=== PATIENT | male | born 1995 ===

== ENCOUNTER 2020-04-09 14:55 | Inpatient (IN) | payer SELFPAY ==
[2020-04-09] MEDS ORDERED: SODIUM CHLORIDE 0.9% 1000 ML 1,000 ML IV ONE (15:11)
--- NOTE | 2020-04-09 15:12 | Event Note ---
ED Screening Note Date of service: 04/09/20 Time: 15:10 ED Screening Note: This initial assessment/diagnostic orders/clinical plan/treatment(s) is/are subject to change based on patients health status, clinical progression and re- assessment by fellow clinical providers in the ED. Further treatment and workup at subsequent clinical providers discretion. Patient/guardian urged not to elope from the ED as their condition may be serious if not clinically assessed and managed. Initial orders include: 24-year-old male presents to the emergency room reporting 3 days of nausea vomiting and diarrhea. He states he is unable to keep any food down the last attempt to eat a banana this morning but also vomiting he denies fever chills
[2020-04-09] MEDS ORDERED: ONDANSETRON 4 MG/2 ML INJ IM ONE (15:13)
[2020-04-09 15:32] LABS: Basophils # (Auto) 0.1 K/mm3 (0.0-0.1); Basophils % (Auto) 0.3 % (0.0-1.8); Eosinophils % (Auto) 0.1 % (0.0-4.3); Hematocrit 44.8 % (35.5-45.6); Hemoglobin 15.3 gm/dl (11.8-15.2); Lymphocytes # (Auto) 1.4 K/mm3 (1.2-5.4); Lymphocytes % (Auto) 8.6 % (13.4-35.0); Mean Corpuscular HGB Conc 34 % (32-34); Mean Corpuscular Volume 75 fl (84-94); Monocytes # (Auto) 1.5 K/mm3 (0.0-0.8); Monocytes % (Auto) 9.2 % (0.0-7.3); Platelet Count 477 K/mm3 (140-440); Red Blood Count 5.96 M/mm3 (3.65-5.03); Red Cell Distribution Width 13.7 % (13.2-15.2)
[2020-04-09 15:49] LABS: Alanine Aminotransferase 17 units/L (7-56); Albumin 4.2 g/dL (3.9-5); BUN/Creatinine Ratio 11; Blood Urea Nitrogen 9 mg/dL (9-20); Calcium 9.9 mg/dL (8.4-10.2); Hemolysis Index 3
[2020-04-09] MEDS ORDERED: ONDANSETRON 4 MG/2 ML INJ IV ONE ×2 (16:14→18:50)
--- NOTE | 2020-04-09 16:34 | Emergency Department Report ---
HPI - General Chief Complaint: Nausea/Vomiting/Diarrhea Time Seen by Provider: 04/09/20 16:14 - HPI HPI: This is a 24-year-old male who presents to the emergency department with a 4 to 5-day history of nausea with vomiting, and some intermittent abdominal pains. The patient says that he has multiple episodes of vomiting per day and it is gone to the point where he thinks he is vomiting up yellowish-green fluid or bile. When the patient tries to eat or drink anything it increases the pressure in the upper abdomen/epigastrium and the patient says "if I do not burp then I vomit." The patient complains of some mild abdominal pain that seems to occur in different locations. It is a cramping pain, 2 out of 10 but worsens with palpation of the abdomen. The patient was admitted here in July of last year with a ruptured tip appendicitis that caused pelvic and presacral abscesses. The patient had IR drainage and drain placement but did not have an appendectomy at that time. The patient has not taken anything for his symptoms prior to presentation. No recent travel or sick contacts at home. No known exposure to anyone with COVID-19. ED Past Medical Hx - Past Medical History Hx Congestive Heart Failure: No Hx Diabetes: No Hx Asthma: No Hx HIV: No - Surgical History Hx Appendectomy: Yes - Social History Smoking Status: Never Smoker Substance Use Type: None - Medications Home Medications: Home Medications Medication Instructions Recorded Confirmed Last Taken Type No Known Home Medications [No 04/09/20 04/09/20 Unknown History Reported Home Medications] ED Review of Systems ROS: Stated complaint: NAUSEA/VOMITING Other details as noted in HPI Comment: All other systems reviewed and negative Constitutional: denies: chills, fever Eyes: denies: eye pain, vision change ENT: denies: ear pain, throat pain Respiratory: denies: cough, shortness of breath Cardiovascular: denies: chest pain, palpitations Gastrointestinal: abdominal pain, nausea, vomiting Genitourinary: denies: dysuria, discharge Musculoskeletal: denies: back pain, arthralgia Skin: denies: rash, lesions Neurological: denies: headache, weakness Physical Exam - Physical Exam Vital Signs: Vital Signs 04/09/20 04/09/20 14:57 16:26 Temperature 98.2 F Pulse Rate 104 H Respiratory 18 18 Rate Blood Pressure 142/90 O2 Sat by Pulse 98 Oximetry Physical Exam: GENERAL: The patient is well-developed well-nourished. HENT: Normocephalic. Atraumatic. Patient has moist mucous membranes. EYES: Extraocular motions are intact. NECK: Supple. Trachea is midline. CHEST/LUNGS: Clear to auscultation. There is no respiratory distress noted. HEART/CARDIOVASCULAR: Regular. There is no tachycardia. There is no murmur. ABDOMEN: Abdomen is soft. Very mild lower abdominal tenderness to palpation. No guarding. No peritoneal signs. Patient has normal bowel sounds. There is no abdominal distention. SKIN: Skin is warm and dry. NEURO: The patient is awake, alert, and oriented. The patient is cooperative. The patient has no focal neurologic deficits. Normal speech. MUSCULOSKELETAL: There is no tenderness or deformity. There is no limitation range of motion. ED Course Vital Signs 04/09/20 04/09/20 14:57 16:26 Temperature 98.2 F Pulse Rate 104 H Respiratory 18 18 Rate Blood Pressure 142/90 O2 Sat by Pulse 98 Oximetry - Consultations Consultation #1: 04/09/20 18:51 I spoke to the general surgeon on-call, Dr. Monae, regarding the patient's CT findings of a large pelvic abscess. He is requested the patient receive broad- spectrum antibiotics. He will see the patient as a consult. He says that most likely the patient will need to be seen by IR for an attempt at drainage and/or drain placement. Consultation #2: 04/09/20 19:[address] Bonilla, vascular surgeon/IR, who has graciously agreed to see the patient as a consult. He says that he may not be able to do any type of CT guided procedure until Saturday as we do not have those capabilities over the weekend. ED Medical Decision Making - Lab Data Result diagrams: 04/09/20 15:19 04/09/20 15:19 - Radiology Data Radiology results: report reviewed CT ABDOMEN AND PELVIS WITH CONTRAST INDICATION / CLINICAL INFORMATION: Abd pain, hx of appendicitis without appendectomy. TECHNIQUE: Axial CT images were obtained through the abdomen and pelvis after IV contrast. All CT scans at this location are performed using CT dose reduction for ALARA by means of automated exposure control. COMPARISON: 08/31/2019. FINDINGS: LOWER CHEST: No significant abnormality. LIVER: No significant abnormality. GALLBLADDER: No significant abnormality. BILE DUCTS: No significant abnormality. PANCREAS: No significant abnormality. SPLEEN: No significant abnormality. ADRENALS: No significant abnormality. RIGHT KIDNEY / URETER: No significant abnormality. LEFT KIDNEY / URETER: No significant abnormality. STOMACH / SMALL BOWEL: Local inflammatory changes are noted of the small bowel within the lower abdomen. Additionally there is gas and fluid-filled distention of small bowel loops, the largest measuring 3.1 cm in cross sectional diameter. COLON: Inflammatory changes are noted of the colon and the right lower quadrant of the abdomen and central pelvis. APPENDIX: Significant inflammatory changes and fluid collection are noted in the pelvis causing incomplete visualization of the appendix. PERITONEUM: Interval removal of previously noted percutaneous drain of the pelvis with worsened pelvic abscess above the dome of the bladder, the largest collection measures 7.4 x 5.9 cm and extends along the left margin of the urinary bladder. No free air. LYMPH NODES: Reactive appearing lymph nodes are noted at the root of the mesentery. AORTA / ARTERIES: No significant abnormality. IVC / VEINS: No significant abnormality. URINARY BLADDER: No significant abnormality. REPRODUCTIVE ORGANS: No significant abnormality. ADDITIONAL FINDINGS: None. SKELETAL SYSTEM: Sacralization is noted of L5. No aggressive osseous lesions. IMPRESSION: 1. Worsened inflammatory process in the pelvis with large pelvic abscess measuring 7.4 x 5.9 cm. The previously noted percutaneous drain has been removed. The appendix is not well-visualized secondary to the extensive inflammatory changes in the pelvis and may have ruptured. Consultation with surgery is recommended. 2. Focal ileus is noted of small bowel loops in the pelvis likely secondary to local inflammatory changes. No definitive mechanical bowel obstruction is noted. 3. Worsened reactive lymphadenopathy at the root of the mesentery and retroperitoneum. - Medical Decision Making This patient presents to the emergency department with a complaint of nausea and vomiting but on examination he has very mild lower abdominal tenderness to palpa tion. The patient has a complex history from last summer that showed some type of appendiceal rupture causing an extensive pelvic abscess. The patient had IR drainage followed by another procedure to place drains. The patient never had an appendectomy. Given this history, the mild lower abdominal tenderness to palpation, and the 16,000 white blood cell count found on his laboratory studies, I ordered a CT scan of the abdomen and pelvis with IV contrast. The CT resulted as showing a large left-sided pelvic abscess without CT evidence of the appendix. General surgery was contacted and consulted. Vascular surgery/IR was also contacted and consulted. The patient was given broad-spectrum antibiotics and will be admitted to the hospitalist service. The patient was accepted for admission by Dr. Garcia. Critical Care Time: Yes Critical care time in (mins) excluding proc time.: 35 Critical care attestation.: If time is entered above; I have spent that time in minutes in the direct care of this critically ill patient, excluding procedure time. Critical care time was spent on this patient in doing his initial evaluation, multiple reevaluations, ordering interpretation of labs and imaging, discussion with the general surgery and IR services, multiple discussions with the patient. Critical Care Time: 35 minutes ED Disposition Clinical Impression: Pelvic abscess in male, Appendicitis with abscess, Ileus Disposition: OP ADMIT IP TO THIS HOSP Is pt being admited?: Yes Condition: Serious Time of Disposition: 22:19
--- NOTE | 2020-04-09 18:34 | Cat Scan Report ---
CT ABDOMEN AND PELVIS WITH CONTRAST INDICATION / CLINICAL INFORMATION: Abd pain, hx of appendicitis without appendectomy. TECHNIQUE: Axial CT images were obtained through the abdomen and pelvis after IV contrast. All CT scans at this location are performed using CT dose reduction for ALARA by means of automated exposure control. COMPARISON: 08/31/2019. FINDINGS: LOWER CHEST: No significant abnormality. LIVER: No significant abnormality. GALLBLADDER: No significant abnormality. BILE DUCTS: No significant abnormality. PANCREAS: No significant abnormality. SPLEEN: No significant abnormality. ADRENALS: No significant abnormality. RIGHT KIDNEY / URETER: No significant abnormality. LEFT KIDNEY / URETER: No significant abnormality. STOMACH / SMALL BOWEL: Local inflammatory changes are noted of the small bowel within the lower abdom en. Additionally there is gas and fluid-filled distention of small bowel loops, the largest measuring 3.1 cm in cross sectional diameter. COLON: Inflammatory changes are noted of the colon and the right lower quadrant of the abdomen and ce ntral pelvis. APPENDIX: Significant inflammatory changes and fluid collection are noted in the pelvis causing incom plete visualization of the appendix. PERITONEUM: Interval removal of previously noted percutaneous drain of the pelvis with worsened pelvi c abscess above the dome of the bladder, the largest collection measures 7.4 x 5.9 cm and extends rusty ng the left margin of the urinary bladder. No free air. LYMPH NODES: Reactive appearing lymph nodes are noted at the root of the mesentery. AORTA / ARTERIES: No significant abnormality. IVC / VEINS: No significant abnormality. URINARY BLADDER: No significant abnormality. REPRODUCTIVE ORGANS: No significant abnormality. ADDITIONAL FINDINGS: None. SKELETAL SYSTEM: Sacralization is noted of L5. No aggressive osseous lesions. IMPRESSION: 1. Worsened inflammatory process in the pelvis with large pelvic abscess measuring 7.4 x 5.9 cm. The previously noted percutaneous drain has been removed. The appendix is not well-visualized secondary t o the extensive inflammatory changes in the pelvis and may have ruptured. Consultation with surgery i s recommended. 2. Focal ileus is noted of small bowel loops in the pelvis likely secondary to local inflammatory shukri nges. No definitive mechanical bowel obstruction is noted. 3. Worsened reactive lymphadenopathy at the root of the mesentery and retroperitoneum. Signer Name: Elan Berg MD Signed: 04/09/2020 6:29 PM Workstation Name: [id number]
[2020-04-09] MEDS ORDERED: PIPERACIL/TAZOBACTA 4.5/NS 100 4.5 GM/100 ML VIAL IV ONE (18:39)
[2020-04-09] MEDS ORDERED: ONDANSETRON 4 MG/2 ML INJ ONE (18:48)
--- NOTE | 2020-04-09 18:51 | History and Physical Report ---
History of Present Illness Chief complaint: My stomach hurts History of present illness: 24 YO Male with Nicotine Dependence presents to ED for evaluation. Patient reports "my stomach hurts". Patient states that he has experienced abdominal pain, nausea, multiple episodes of vomiting over the past 4 days with progre ssively worsening symptoms over the past 1 day. Patient states that pain is 4/10, intermittent, crampy in nature, worsens with palpation. EMS was notified and upon evaluation the patient was found to be in distress and subsequently transported to [facility] for further care and evaluation of the aforementioned symptoms. The patient was seen and evaluated in the emergency department. All lab and imaging studies reviewed. The patient underwent a CT scan of the abdomen and pelvis which revealed a 7.5 cm x 6 cm pelvic abscess complicated by sepsis. Patient initiated on sepsis protocol and admitted to surgical floor. Surgical team consulted in ED. Interventional radiology team consulted in ED. Patient denies fever, chills, chest pain, palpitations, productive cough, skin rash, recent ill contacts, or known exposure to COVID-19. Prior admission on 08/23/2019 reviewed. All medication listed at time of admission has been reconciled. Past History Past Medical History: other (See HPI) Past Surgical History: appendectomy Social history: single, smoking Family history: no significant family history, other (Reviewed) Medications and Allergies Allergies Allergy/AdvReac Type Severity Reaction Status Date / Time No Known Allergies Allergy Verified 04/09/20 14:56 Home Medications Medication Instructions Recorded Confirmed Last Taken Type No Known Home Medications [No 04/09/20 04/09/20 Unknown History Reported Home Medications] Active Meds: Active Medications Piperacillin Sod/Tazobactam Sod (Zosyn/Ns 4.5gm/100ml) 4.5 gm in 100 mls @ 200 mls/hr IV ONCE ONE; Protocol Stop: 04/09/20 19:08 Metronidazole (Flagyl 500 Mg/100 Ml) 500 mg in 100 mls @ 100 mls/hr IV Q8H [facility]; Protocol Ondansetron HCl (Ondansetron 4 Mg/2 Ml Inj) 4 mg IV ONCE ONE Stop: 04/09/20 18:51 Review of Systems Constitutional: no weight loss, no weight gain, no fever, no chills Ears, nose, mouth and throat: no ear pain, no ear discharge, no decreased hearing, no nose pain, no nasal congestion Cardiovascular: no chest pain, no orthopnea, no rapid/irregular heart beat, no edema, no syncope Respiratory: no cough, no excessive sputum, no shortness of breath, no dyspnea on exertion Gastrointestinal: abdominal pain, nausea, vomiting, no diarrhea, no change in bowel habits, no BRBPR, no melena, no hematochezia, no loss of appetite Genitourinary Male: no hematuria, no flank pain, no discharge, no urinary frequ ency, no urinary hesitancy Rectal: no pain, no incontinence, no bleeding Musculoskeletal: no neck stiffness, no shooting arm pain, no arm numbness/tin gling, no low back pain, no leg numbness/tingling Integumentary: no rash, no pruritis, no redness, no sores, no boils Neurological: no transient paralysis, no weakness, no numbness, no seizures Psychiatric: no anxiety, no change in sleep habits, no insomnia, no hypersomnia, no change in appetite, no change in libido Endocrine: no cold intolerance, no polyphagia, no excessive thirst, no polyuria, no excessive sweating Hematologic/Lymphatic: no easy bruising, no lymphadenopathy Allergic/Immunologic: no urticaria, no persistent infections, no angioedema Exam - Constitutional Vitals: Temp Pulse Resp BP Pulse Ox 98.2 F 83 18 108/70 98 04/09/20 14:57 04/09/20 16:32 04/09/20 16:32 04/09/20 16:32 04/09/20 16:32 General appearance: Present: mild distress - EENT Eyes: Present: PERRL ENT: hearing intact, clear oral mucosa - Neck Neck: Present: supple, normal ROM - Respiratory Respiratory effort: normal Respiratory: bilateral: CTA - Cardiovascular Heart Sounds: Present: S1 & S2. Absent: rub, click - Extremities Extremities: pulses symmetrical, No edema Peripheral Pulses: abnormal (Capillary refill greater than 3.5 seconds) - Abdominal General gastrointestinal: Present: soft, tender, non-distended, normal bowel aminata nds Localized gastrointestinal: tender: epigastric periumbilical Male genitourinary: Present: normal - Integumentary Integumentary: Present: clear, warm, dry - Musculoskeletal Musculoskeletal: gait normal, strength equal bilaterally - Psychiatric Psychiatric: appropriate mood/affect, intact judgment & insight - Neurologic Neurologic: CNII-XII intact, moves all extremities Results - Labs CBC & Chem 7: 04/09/20 15:19 04/09/20 15:19 Labs: Abnormal lab results 04/09/20 04/09/20 Range/Units 15:19 15:19 WBC 16.4 H (4.5-11.0) K/mm3 RBC 5.96 H (3.65-5.03) M/mm3 Hgb 15.3 H (11.8-15.2) gm/dl MCV 75 L (84-94) fl MCH 26 L (28-32) pg Plt Count 477 H (140-440) K/mm3 Lymph % (Auto) 8.6 L (13.4-35.0) % [place] % (Auto) 9.2 H (0.0-7.3) % [place] # (Auto) 1.5 H (0.0-0.8) K/mm3 Seg Neutrophils % 81.8 H (40.0-70.0) % Seg Neutrophils # 13.4 H (1.8-7.7) K/mm3 Sodium 132 L (137-145) mmol/L Chloride 95.1 L (98-107) mmol/L Carbon Dioxide 21 L (22-30) mmol/L Glucose 101 H (75-100) mg/dL Total Protein 9.1 H (6.3-8.2) g/dL Assessment and Plan - Patient Problems (1) Sepsis Current Visit: Yes Status: Acute Plan to address problem: Sepsis protocol: CBC, CMP, urinalysis, CT scan abdomen and pelvis, IV antibiotic therapy, IV fluid resuscitation therapy, serial lactic acid level, blood culture, maintain mean arterial pressure greater than or equal to 65. (2) Intra-abdominal abscess Current Visit: Yes Status: Acute Plan to address problem: CT scan abdomen pelvis, interventional radiology team consulted, surgical team consulted, IV antibiotic therapy, bowel rest, n.p.o. after midnight. Surgical intervention as per surgical team. (3) Nicotine dependence Current Visit: Yes Status: Acute Qualifiers: Nicotine product type: cigarettes Substance use status: in withdrawal Qualified Code(s): F17.213 - Nicotine dependence, cigarettes, with withdrawal Plan to address problem: Smoking cessation counseling, supportive care, behavior change counseling, +15 minutes. (4) DVT prophylaxis Current Visit: Yes Status: Acute Plan to address problem: SCD to bilateral lower extremities while in bed, patient is ambulatory.
[2020-04-09] MEDS ORDERED: ACETAMINOPHEN 325 MG TAB PO PRN ×2 (18:54)
[2020-04-09] MEDS ORDERED: ALBUTEROL 2.5 MG/3 ML NEBU IH PRN (18:54)
[2020-04-09] MEDS ORDERED: SODIUM CHLORIDE 0.9% 1000 ML IV SOLN IV ONE (18:54)
[2020-04-09] MEDS ORDERED: oxyCODONE /ACETAMINOPHEN 5-325MG TAB PO PRN (18:54)
[2020-04-09] MEDS ORDERED: HYDROmorphone 1 MG/1 ML INJ IV PRN (18:54)
[2020-04-09] MEDS ORDERED: metroNIDAZOLE/NS 500 MG/100 ML 500 MG/100 ML BAG IV SCH (19:00)
[2020-04-09] MEDS ORDERED: CEFEPIME/NS 2 GM/100 ML 2 GM/100 ML BAG IV SCH (20:00)
--- NOTE | 2020-04-09 20:57 | Event Note ---
Date: 04/09/20 Contacted about a 24 year old male with recurrent appendiceal abscess. No interval appendectomy performed. \ Unclear if the original appendiceal abscess ever resolved based on imaging as there is no CT demonstrating resolution of the fluid collection. Patient will need drainage of collection. Plan for drainage on saturday given lack of resources to perform CT guided procedures on the weekend (ie no nurse or tech available). Will need to be NPO except sips of water for saturday. Saturday PO status based on surgery decision.
[2020-04-09] MEDS: SODIUM CHLORIDE 0.9% 1000 ML 1,000 ML IV SCH (23:50)
[2020-04-10 03:59] LABS: Basophils # (Auto) 0.1 K/mm3 (0.0-0.1); Basophils % (Auto) 0.9 % (0.0-1.8); Eosinophils % (Auto) 0.2 % (0.0-4.3); Hematocrit 33.9 % (35.5-45.6); Lymphocytes # (Auto) 1.1 K/mm3 (1.2-5.4); Lymphocytes % (Auto) 6.3 % (13.4-35.0); Mean Corpuscular HGB Conc 36 % (32-34); Mean Corpuscular Volume 75 fl (84-94); Monocytes % (Auto) 11.8 % (0.0-7.3); Platelet Count 387 K/mm3 (140-440); Red Blood Count 4.54 M/mm3 (3.65-5.03); Red Cell Distribution Width 13.9 % (13.2-15.2)
[2020-04-10 04:12] LABS: BUN/Creatinine Ratio 10; Blood Urea Nitrogen 8 mg/dL (9-20); Calcium 8.4 mg/dL (8.4-10.2); Hemolysis Index 0
[2020-04-10] MEDS: ONDANSETRON 4 MG/2 ML INJ IV PRN (04:49)
[2020-04-10] MEDS: metroNIDAZOLE/NS 500 MG/100 ML 500 MG/100 ML BAG IV SCH ×2 (04:49→13:24)
[2020-04-10] MEDS: CEFEPIME/NS 2 GM/100 ML 2 GM/100 ML BAG IV SCH ×2 (08:55→15:38)
[2020-04-10] MEDS: SODIUM CHLORIDE 0.9% 1000 ML 1,000 ML IV SCH (09:41)
--- NOTE | 2020-04-10 12:29 | Progress Note ---
Assessment and Plan -- Sepsis Due to intra-abdominal abscess Continue sepsis protocol with IV antibiotics, Monitor CBC BMP, follow culture -- Intra-abdominal abscess Patient had history of appendicular abscess last year on August -status post drainage that time. Patient was recommended to follow-up with Dr. Fraser which he did and patient never had elective appendectomy done as patient appeared to be clinically stable during his outpatient follow-up Patient now came back with big intra-abdominal abscess which is Noted in the CT scan abdomen pelvis, interventional radiology team consulted, surgical team consulted, Continue IV antibiotic therapy, planned for IR guided drainage catheter placement --History of appendicular abscess, status post drainage by IR back on 08/2019, and Patient did not have elective appendectomy as outpatient following discharge General surgery now consulted and recommended for elective appendectomy once intra-abdominal abscess resolved or IR guided drainage fails -- Nicotine dependence Smoking cessation counseling, supportive care, behavior change counseling, +15 minutes. -- DVT prophylaxis SCD to bilateral lower extremities while in bed, patient is ambulatory. Daily course: 04/10: Cont iv abx, planned for CT guided drainage tomorrow in the am. Patient refusing to take cefepime as he developed nausea and vomiting after infusion of cefepime. Stop cefepime and continue Zosyn for now. Subjective Date of service: 04/10/20 Interval history: Patient seen inside the room with the RN No acute event overnight Refused IV antibiotics as he developed n/v planned for IR guided drainage tomorrow Objective - Exam Narrative Exam: Limited physical exam due to COVID-19 pandemic to minimize transmission of the disease and to preserve PPE. Vital reviewed and stable. GENERAL: well-developed well-nourished young male lying on bed appeared to be in no discomfort. HEENT: Normocephalic. Atraumatic. NECK: Supple. CHEST/LUNGS: breathing nonlabored. HEART/CARDIOVASCULAR: Heart rate stable on telemetry ABDOMEN: Visibly not distended. SKIN: There is no rash NEURO: No focal motor deficit. Follows command. MUSCULOSKELETAL: No joint effusion EXTRIMITY: No swelling, no cyanosis or clubbing. PSYCH: cooperative. - Constitutional Vitals: Vital Signs - 12hr 04/10/20 04/10/20 04/10/20 05:22 09:55 11:38 Temperature 97.6 F Pulse Rate 86 87 Respiratory 16 16 Rate Blood Pressure 121/80 110/64 O2 Sat by Pulse 98 98 99 Oximetry - Labs CBC & Chem 7: 04/12/20 14:03 04/13/20 09:40 Labs: Abnormal lab results 04/09/20 04/09/20 04/09/20 Range/Units 15:19 15:19 18:45 WBC 16.4 H (4.5-11.0) K/mm3 RBC 5.96 H (3.65-5.03) M/mm3 Hgb 15.3 H (11.8-15.2) gm/dl Hct (35.5-45.6) % MCV 75 L (84-94) fl MCH 26 L (28-32) pg MCHC (32-34) % Plt Count 477 H (140-440) K/mm3 Lymph % (Auto) 8.6 L (13.4-35.0) % [place] % (Auto) 9.2 H (0.0-7.3) % Lymph # (Auto) (1.2-5.4) K/mm3 [place] # (Auto) 1.5 H (0.0-0.8) K/mm3 Seg Neutrophils % 81.8 H (40.0-70.0) % Seg Neutrophils # 13.4 H (1.8-7.7) K/mm3 Sodium 132 L (137-145) mmol/L Chloride 95.1 L (98-107) mmol/L Carbon Dioxide 21 L (22-30) mmol/L BUN (9-20) mg/dL Glucose 101 H (75-100) mg/dL Lactic Acid 0.60 L (0.7-2.0) mmol/L Total Protein 9.1 H (6.3-8.2) g/dL 04/10/20 04/10/20 Range/Units 03:52 03:52 WBC 16.7 H (4.5-11.0) K/mm3 RBC (3.65-5.03) M/mm3 Hgb (11.8-15.2) gm/dl Hct 33.9 L D (35.5-45.6) % MCV 75 L (84-94) fl MCH 27 L (28-32) pg MCHC 36 H (32-34) % Plt Count (140-440) K/mm3 Lymph % (Auto) 6.3 L (13.4-35.0) % [place] % (Auto) 11.8 H (0.0-7.3) % Lymph # (Auto) 1.1 L (1.2-5.4) K/mm3 [place] # (Auto) 2.0 H (0.0-0.8) K/mm3 Seg Neutrophils % 80.8 H (40.0-70.0) % Seg Neutrophils # 13.5 H (1.8-7.7) K/mm3 Sodium 134 L (137-145) mmol/L Chloride (98-107) mmol/L Carbon Dioxide 20 L (22-30) mmol/L BUN 8 L (9-20) mg/dL Glucose 74 L (75-100) mg/dL Lactic Acid (0.7-2.0) mmol/L Total Protein (6.3-8.2) g/dL
--- NOTE | 2020-04-10 12:39 | Consultation ---
History of Present Illness Consult date: 04/10/20 Reason for consult: abdominal pain - History of present illness History of present illness: 24 yo male s/p perforated appendicitis with pelvic abscess which was successfully non-surgically treated in 08/2019. Pt never saw a surgeon after this hospitalization. He now presents with a 4 day h/o BLQ discomfort associated with nausea and vomiting. Denies fever, chills, hematochezia or diarrhea. Past History Past Medical History: other (See HPI) Past Surgical History: appendectomy Social history: single, smoking Family history: no significant family history, other (Reviewed) Medications and Allergies Allergies Allergy/AdvReac Type Severity Reaction Status Date / Time No Known Allergies Allergy Verified 04/09/20 14:56 Home Medications Medication Instructions Recorded Confirmed Last Taken Type No Known Home Medications [No 04/09/20 04/09/20 Unknown History Reported Home Medications] Active Meds: Active Medications Acetaminophen (Acetaminophen 325 Mg Tab) 650 mg PO Q4H PRN PRN Reason: Pain MILD(1-3)/Fever >100.5/GRANDE Albuterol (Albuterol 2.5 Mg/3 Ml Nebu) 2.5 mg IH Q4HRT PRN PRN Reason: Shortness Of Breath Hydromorphone HCl (Hydromorphone 1 Mg/1 Ml Inj) 0.25 mg IV Q4H PRN PRN Reason: Pain, Moderate (4-6) Last Admin: 04/09/20 19:20 Dose: 0.25 mg Documented by: Cefepime HCl (Cefepime/Ns 2 Gm/100 Ml) 2 gm in 100 mls @ 200 mls/hr IV Q8HR JANIA; Protocol Last Admin: 04/10/20 08:55 Dose: 200 mls/hr Documented by: Metronidazole (Flagyl 500 Mg/100 Ml) 500 mg in 100 mls @ 100 mls/hr IV Q8H JANIA; Protocol Last Admin: 04/10/20 04:49 Dose: 100 mls/hr Documented by: Dextrose/Sodium Chloride (D5ns) 1,000 mls @ 75 mls/hr IV DIRECT JANIA Ondansetron HCl (Ondansetron 4 Mg/2 Ml Inj) 4 mg IV Q8H PRN PRN Reason: Nausea And Vomiting Last Admin: 04/10/20 04:49 Dose: 4 mg Documented by: Oxycodone/Acetaminophen (Oxycodone /Acetaminophen 5-325mg Tab) 1 tab PO Q6H PRN PRN Reason: Pain, Moderate (4-6) Sodium Chloride (Sodium Chloride 0.9% 10 Ml Flush Syringe) 10 ml IV BID JANIA Last Admin: 04/10/20 09:02 Dose: Not Given Documented by: Sodium Chloride (Sodium Chloride 0.9% 10 Ml Flush Syringe) 10 ml IV PRN PRN PRN Reason: LINE FLUSH Review of Systems All systems: negative (none) Exam Vital Signs Temp Pulse Resp BP Pulse Ox 98.2 F 104 H 18 142/90 98 04/09/20 14:57 04/09/20 14:57 04/09/20 14:57 04/09/20 14:57 04/09/20 14:57 - General physical appearance Positive: well developed, well nourished, no distress - Eyes Positive: PERRL, normal occular movement - ENT Positive: normal pinna, normal nares, normal mucosa, no hearing loss, no congestion - Neck Positive: no masses, no bruits, trachea midline, no venous distension - Respiratory Positive: normal expansion, normal respiratory effort, clear to auscultation - Cardiovascular Rhythm: regular Heart Sounds: Present: S1 & S2. Absent: rub, click - Extremities Extremities: no ischemia, pulses symmetrical, No edema - Breasts Breasts: normal, no mass, no skin changes - Abdomen Abdomen: Present: soft, bowel sounds normal. Absent: tender, distended Hernia: none - Genitourinary Male Genitourinary: normal Female Genitourinary: normal - Integumentary no rash, no growths, no abnormal pigmentation - Neurologic Neurologic: alert and oriented to time, place and person, motor strength and sensation are grossly intact - Musculoskeletal normal gait, normal posture - Psychiatric Psychiatric: appropriate mood/affect, intact judgment & insight Results - Labs 04/10/20 03:52 04/10/20 03:52 Abnormal lab results 04/09/20 04/09/20 04/09/20 Range/Units 15:19 15:19 18:45 WBC 16.4 H (4.5-11.0) K/mm3 RBC 5.96 H (3.65-5.03) M/mm3 Hgb 15.3 H (11.8-15.2) gm/dl Hct (35.5-45.6) % MCV 75 L (84-94) fl MCH 26 L (28-32) pg MCHC (32-34) % Plt Count 477 H (140-440) K/mm3 Lymph % (Auto) 8.6 L (13.4-35.0) % Garza % (Auto) 9.2 H (0.0-7.3) % Lymph # (Auto) (1.2-5.4) K/mm3 Garza # (Auto) 1.5 H (0.0-0.8) K/mm3 Seg Neutrophils % 81.8 H (40.0-70.0) % Seg Neutrophils # 13.4 H (1.8-7.7) K/mm3 Sodium 132 L (137-145) mmol/L Chloride 95.1 L (98-107) mmol/L Carbon Dioxide 21 L (22-30) mmol/L BUN (9-20) mg/dL Glucose 101 H (75-100) mg/dL Lactic Acid 0.60 L (0.7-2.0) mmol/L Total Protein 9.1 H (6.3-8.2) g/dL 04/10/20 04/10/20 Range/Units 03:52 03:52 WBC 16.7 H (4.5-11.0) K/mm3 RBC (3.65-5.03) M/mm3 Hgb (11.8-15.2) gm/dl Hct 33.9 L D (35.5-45.6) % MCV 75 L (84-94) fl MCH 27 L (28-32) pg MCHC 36 H (32-34) % Plt Count (140-440) K/mm3 Lymph % (Auto) 6.3 L (13.4-35.0) % [place] % (Auto) 11.8 H (0.0-7.3) % Lymph # (Auto) 1.1 L (1.2-5.4) K/mm3 [place] # (Auto) 2.0 H (0.0-0.8) K/mm3 Seg Neutrophils % 80.8 H (40.0-70.0) % Seg Neutrophils # 13.5 H (1.8-7.7) K/mm3 Sodium 134 L (137-145) mmol/L Chloride (98-107) mmol/L Carbon Dioxide 20 L (22-30) mmol/L BUN 8 L (9-20) mg/dL Glucose 74 L (75-100) mg/dL Lactic Acid (0.7-2.0) mmol/L Total Protein (6.3-8.2) g/dL Diabetes panel 04/09/20 04/10/20 Range/Units 15:19 03:52 Sodium 132 L 134 L (137-145) mmol/L Potassium 3.7 3.6 (3.6-5.0) mmol/L Chloride 95.1 L 98.4 (98-107) mmol/L Carbon Dioxide 21 L 20 L (22-30) mmol/L BUN 9 8 L (9-20) mg/dL Creatinine 0.8 0.8 (0.8-1.3) mg/dL Glucose 101 H 74 L (75-100) mg/dL Calcium 9.9 8.4 D (8.4-10.2) mg/dL AST 11 (5-40) units/L ALT 17 (7-56) units/L Alkaline Phosphatase 102 (35-129) units/L Total Protein 9.1 H (6.3-8.2) g/dL Albumin 4.2 (3.9-5) g/dL Calcium panel 04/09/20 04/10/20 Range/Units 15:19 03:52 Calcium 9.9 8.4 D (8.4-10.2) mg/dL Albumin 4.2 (3.9-5) g/dL Pituitary panel 04/09/20 04/10/20 Range/Units 15:19 03:52 Sodium 132 L 134 L (137-145) mmol/L Potassium 3.7 3.6 (3.6-5.0) mmol/L Chloride 95.1 L 98.4 (98-107) mmol/L Carbon Dioxide 21 L 20 L (22-30) mmol/L BUN 9 8 L (9-20) mg/dL Creatinine 0.8 0.8 (0.8-1.3) mg/dL Glucose 101 H 74 L (75-100) mg/dL Calcium 9.9 8.4 D (8.4-10.2) mg/dL Adrenal panel 02/20/21 02/21/21 Range/Units 15:19 03:52 Sodium 132 L 134 L (137-145) mmol/L Potassium 3.7 3.6 (3.6-5.0) mmol/L Chloride 95.1 L 98.4 (98-107) mmol/L Carbon Dioxide 21 L 20 L (22-30) mmol/L BUN 9 8 L (9-20) mg/dL Creatinine 0.8 0.8 (0.8-1.3) mg/dL Glucose 101 H 74 L (75-100) mg/dL Calcium 9.9 8.4 D (8.4-10.2) mg/dL Total Bilirubin 0.70 (0.1-1.2) mg/dL AST 11 (5-40) units/L ALT 17 (7-56) units/L Alkaline Phosphatase 102 (35-129) units/L Total Protein 9.1 H (6.3-8.2) g/dL Albumin 4.2 (3.9-5) g/dL - Imaging CT scan - abdomen: report reviewed CT scan - pelvis: report reviewed Additional studies: Hospital course of 08/2019 was reviewed. Assessment and Plan - Patient Problems (1) Appendicitis with abscess Current Visit: Yes Status: Acute Plan to address problem: 1) Bowel rest 2) Broad spectrum IV antibiotics 3) Consult IR for percutaneous drainage 4) Surgical drainage/appendectomy will only be considered during this hospitalization if the above fails. I have already told the pt that he needs an elective appendectomy once his current pelvic abscess has again been adequately treated.
[2020-04-10] MEDS ORDERED: D5W/0.9% NACL 1,000 ML IV SCH (13:00)
[2020-04-10] MEDS ORDERED: METOCLOPRAMIDE 10 MG/2 ML INJ IV PRN (17:14)
[2020-04-10] MEDS: PIPERACIL/TAZOBACTA 4.5/NS 100 4.5 GM/100 ML VIAL IV SCH (18:20)
[2020-04-11] MEDS: PIPERACIL/TAZOBACTA 4.5/NS 100 4.5 GM/100 ML VIAL IV SCH ×2 (06:13→14:02)
[2020-04-11 08:34] LABS: Basophils % (Auto) 0.2 % (0.0-1.8); Eosinophils % (Auto) 0.1 % (0.0-4.3); Hematocrit 36.3 % (35.5-45.6); Hemoglobin 12.3 gm/dl (11.8-15.2); Lymphocytes # (Auto) 0.8 K/mm3 (1.2-5.4); Lymphocytes % (Auto) 6.4 % (13.4-35.0); Mean Corpuscular HGB Conc 34 % (32-34); Mean Corpuscular Volume 74 fl (84-94); Monocytes # (Auto) 1.4 K/mm3 (0.0-0.8); Monocytes % (Auto) 11.4 % (0.0-7.3); Platelet Count 390 K/mm3 (140-440); Red Cell Distribution Width 14.2 % (13.2-15.2)
[2020-04-11 08:47] LABS: INR 1.15 (0.87-1.13)
[2020-04-11 08:48] LABS: Blood Urea Nitrogen 6 mg/dL (9-20); Calcium 8.4 mg/dL (8.4-10.2); Hemolysis Index 2
[2020-04-11 08:56] LABS: BUN/Creatinine Ratio 10
--- NOTE | 2020-04-11 10:03 | Event Note ---
Date: 04/10/20 Got call from RN that patient refusing abx as he developed n/v I spoke with Patient by phone and explained the importance of abx for him as he has intraabdominal abscess I also told him that I can give him different nausea medication, changed to different abx to slow down the n/v but patient insisted that he will not take any abx tonight because he does not want anyone or any event to disturb him at night
[2020-04-11] MEDS ORDERED: MIDAZOLAM 5 MG/5 ML INJ MDV IV NR (10:07)
[2020-04-11] MEDS ORDERED: fentaNYL 100 MCG/2 ML INJ IV NR (10:07)
[2020-04-11] MEDS ORDERED: SODIUM CHLORIDE 0.9% 500 ML 0 ML ONE (10:39)
--- NOTE | 2020-04-11 10:57 | Consultation ---
History of Present Illness - Reason for Consult Consult date: 04/11/20 Appendiceal abscess - History of Present Illness 24 yo male s/p perforated appendicitis with pelvic abscess which was succes sfully non-surgically treated in 08/2019. Pt never saw a surgeon after this hospitalization. He now presents with a 4 day h/o BLQ discomfort associated with nausea and vomiting. Denies fever, chills, hematochezia or diarrhea. IR previously performed a percutaneous aspiration and subsequently a drainage. Discussed drainage with the patient including the R/B/A. Past History Past Medical History: other (See HPI) Past Surgical History: No surgical history (CT guided drainage for appendiceal rupture without appendectomy) Social history: single, smoking Family history: no significant family history, other (Reviewed) Medications and Allergies Allergies Allergy/AdvReac Type Severity Reaction Status Date / Time No Known Allergies Allergy Verified 04/09/20 14:56 Home Medications Medication Instructions Recorded Confirmed Last Taken Type No Known Home Medications [No 04/09/20 04/09/20 Unknown History Reported Home Medications] Active Meds: Active Medications Acetaminophen (Acetaminophen 325 Mg Tab) 650 mg PO Q4H PRN PRN Reason: Pain MILD(1-3)/Fever >100.5/GRANDE Albuterol (Albuterol 2.5 Mg/3 Ml Nebu) 2.5 mg IH Q4HRT PRN PRN Reason: Shortness Of Breath Fentanyl (Fentanyl 100 Mcg/2 Ml Inj) 100 mcg IV ONCE NR Stop: 04/11/20 18:00 Hydromorphone HCl (Hydromorphone 1 Mg/1 Ml Inj) 0.25 mg IV Q4H PRN PRN Reason: Pain, Moderate (4-6) Last Admin: 04/09/20 19:20 Dose: 0.25 mg Documented by: Piperacillin Sod/Tazobactam Sod (Zosyn/Ns 4.5gm/100ml) 4.5 gm in 100 mls @ 200 mls/hr IV Q8H JANIA; Protocol Last Admin: 04/11/20 06:13 Dose: Not Given Documented by: Potassium Chloride 30 meq/ (Dextrose/Sodium Chloride) 1,015 mls @ 75 mls/hr IV DIRECT JANIA Metoclopramide HCl (Metoclopramide 10 Mg/2 Ml Inj) 10 mg IV Q6H PRN PRN Reason: Nausea And Vomiting Midazolam HCl (Midazolam 5 Mg/5 Ml Inj Mdv) 5 mg IV ONCE NR Stop: 04/11/20 18:00 Ondansetron HCl (Ondansetron 4 Mg/2 Ml Inj) 4 mg IV Q8H PRN PRN Reason: Nausea And Vomiting Last Admin: 04/10/20 04:49 Dose: 4 mg Documented by: Oxycodone/Acetaminophen (Oxycodone /Acetaminophen 5-325mg Tab) 1 tab PO Q6H PRN PRN Reason: Pain, Moderate (4-6) Sodium Chloride (Sodium Chloride 0.9% 10 Ml Flush Syringe) 10 ml IV BID JANIA Last Admin: 04/11/20 06:13 Dose: Not Given Documented by: Sodium Chloride (Sodium Chloride 0.9% 10 Ml Flush Syringe) 10 ml IV PRN PRN PRN Reason: LINE FLUSH Review of Systems All systems: negative (see HPI) Exam - Constitutional Vitals: Temp Pulse Resp BP Pulse Ox 98.4 F 97 H 18 103/68 98 04/11/20 07:51 04/11/20 07:51 04/11/20 07:51 04/11/20 07:51 04/11/20 08:11 General appearance: Present: no acute distress - EENT Eyes: Present: EOM intact ENT: hearing intact - Respiratory Respiratory effort: normal - Extremities Extremities: normal temperature, normal color - Abdominal General gastrointestinal: Present: soft, tender (mild pelvic discomfort) - Psychiatric Psychiatric: appropriate mood/affect, cooperative Results - Labs CBC & Chem 7: 04/11/20 08:07 04/11/20 08:07 Labs: Abnormal lab results 04/11/20 04/11/20 04/11/20 Range/Units 08:07 08:07 08:07 WBC 12.6 H (4.5-11.0) K/mm3 MCV 74 L (84-94) fl MCH 25 L (28-32) pg Lymph % (Auto) 6.4 L (13.4-35.0) % Leslie % (Auto) 11.4 H (0.0-7.3) % Lymph # (Auto) 0.8 L (1.2-5.4) K/mm3 Leslie # (Auto) 1.4 H (0.0-0.8) K/mm3 Seg Neutrophils % 81.9 H (40.0-70.0) % Seg Neutrophils # 10.3 H (1.8-7.7) K/mm3 INR 1.15 H (0.87-1.13) Sodium 136 L (137-145) mmol/L Potassium 3.3 L (3.6-5.0) mmol/L BUN 6 L (9-20) mg/dL Creatinine 0.6 L (0.8-1.3) mg/dL Glucose 103 H (75-100) mg/dL - Imaging and Cardiology CT scan - abdomen: report reviewed, image reviewed Assessment and Plan 24-year-old male with past medical history of ruptured appendiceal abscess status post CT-guided aspiration and CT-guided drainage who presents with recurrent ruptured appendiceal abscess. Upon full review of the prior imaging, it appears that the patient ultimately had placement of a CT-guided drain with near resolution of the pelvic abscess from the appendix. Unfortunately, the patient did not follow-up and now presents with a new abscess in the pelvis likely secondary to the previous ruptured appendix. There is a adequate window for CT-guided drainage of the appendiceal abscess. Risks, benefits, and alternatives were discussed with the patient and patient has agreed to CT-guided drainage. Plan for CT-guided drainage today.
--- NOTE | 2020-04-11 11:40 | Post Operative Note ---
Date of procedure: 04/11/20 Pre-op diagnosis: Appediceal ruptured abscess Post-op diagnosis: same Findings: 50 mL purulent fluid removed Procedure: CT guided 8 Fr APD drain placed in an appendiceal abscess Anesthesia: local Surgeon: RITESH KENDRICK Estimated blood loss: minimal Condition: stable Disposition: floor
--- NOTE | 2020-04-11 11:43 | Operative Report ---
Operative Report Operative Report: EXAM: CT guided abdominal fluid collection drainage with 8 Filipino drain placement CLINICAL INDICATION: Patient with recurrent ruptured appendiceal abscess DATE: 04/11/2019 SBA UNDERWRITER: RITESH KENDRICK MD MEDICATIONS: Conscious sedation using Versed and fentanyl was performed under guidance of radiologic nursing. Continuous cardiopulmonary monitoring was utilized. PROCEDURE: Following an explanation of the risks, benefits and alternatives; written informed consent was obtained. The patient was brought to the CT suite and placed in the supine position on the CT table. Electronics Tester CT was performed of the abdomen and pelvis. After determining the appropriate site, the skin was infiltrated with lidocaine and a finder needle was placed. Intermittent CT was performed until the desired position was identified. The 18 gauge trocar needle was inserted into the midline fluid collection. J wire was then advanced through the needle and into the collection. The needle was exchanged for multiple dilators that were used to serially dilate over the wire. A 8 Fr APD drain was advanced over the wire and metal stiffener. The metal stiffener and wire were removed. CT scanning was performed. The pigtail was secured and aspirated until no more material could be aspirated. 2-0 Silk sutures were used to secure the catheter. Sterile bandage was applied. The patient tolerated the procedure well. There were no immediate postprocedural complications. FINDINGS: 1. Initial CT demonstrates a midline fluid collection adjacent to the bladder. There is a satisfactory window for CT drainage. 2. Intermittent CT demonstrates the 18 gauge needle was placed in the fluid collection. 3. Wire is coiled in the fluid collection. 4. CT documents placement of a 8 Fr drain in the appendiceal fluid collection. 5. A total of approximately 50 mL of purulent material was aspirated through the drain and initial needle. IMPRESSION: Successful CT guided 8 Filipino drain placement in a lower midline appendiceal abscess.
[2020-04-11] MEDS: POTASSIUM CHLORIDE 30 MEQ in D5W/0.9% NACL 1,000 ML IV SCH ×2 (12:30→22:08)
--- NOTE | 2020-04-11 13:44 | Consultation ---
History of Present Illness - Reason for Consult Consult date: 04/11/20 - History of Present Illness 24-year-old male no past medical history presented to hospital complaining of abdominal pain. He notes this is associated with nausea and began approximate 4 days prior to admission. It is been progressively worse over the past 1 day. Otherwise no acute concerns. He was admitted in August of last year and found to have acute appendicitis with abscess. We were not consulted at the time. Afebrile since admission with a white count of 16. Blood cultures pending. Currently on Zosyn. Imaging personally reviewed: CT abdomen pelvis: Large pelvic abscess Review of Systems: Bold if positive, otherwise negative General: fevers, chills, rigors HEENT: visual disturbance, diplopia, eye pain Respiratory: cough, sputum, hemoptysis, shortness of breath Cardiovascular: chest pain, syncope Gastrointestinal: nausea, vomiting, diarrhea, abdominal pain Genitourinary: dysuria, hematuria, flank pain Musculoskeletal: neck pain, back pain, joint pain, edema Neurologic: headaches, seizures Hematologic: easy bruising or bleeding Endocrine: night sweats, acute weight loss Skin: rash, jaundice, redness Psychiatric: suicidal, homicidal ideation Past History Past Medical History: other (See HPI) Past Surgical History: No surgical history (CT guided drainage for appendiceal rupture without appendectomy) Social history: single, smoking Family history: no significant family history, other (Reviewed) Medications and Allergies Allergies Allergy/AdvReac Type Severity Reaction Status Date / Time No Known Allergies Allergy Verified 04/09/20 14:56 Home Medications Medication Instructions Recorded Confirmed Last Taken Type No Known Home Medications [No 04/09/20 04/09/20 Unknown History Reported Home Medications] Active Meds: Active Medications Acetaminophen (Acetaminophen 325 Mg Tab) 650 mg PO Q4H PRN PRN Reason: Pain MILD(1-3)/Fever >100.5/GRANDE Albuterol (Albuterol 2.5 Mg/3 Ml Nebu) 2.5 mg IH Q4HRT PRN PRN Reason: Shortness Of Breath Fentanyl (Fentanyl 100 Mcg/2 Ml Inj) 100 mcg IV ONCE NR Stop: 04/11/20 18:00 Last Admin: 04/11/20 11:15 Dose: 100 mcg Documented by: Hydromorphone HCl (Hydromorphone 1 Mg/1 Ml Inj) 0.25 mg IV Q4H PRN PRN Reason: Pain, Moderate (4-6) Last Admin: 04/09/20 19:20 Dose: 0.25 mg Documented by: Piperacillin Sod/Tazobactam Sod (Zosyn/Ns 4.5gm/100ml) 4.5 gm in 100 mls @ 200 mls/hr IV Q8H JANIA; Protocol Last Admin: 04/11/20 06:13 Dose: Not Given Documented by: Potassium Chloride 30 meq/ (Dextrose/Sodium Chloride) 1,015 mls @ 75 mls/hr IV DIRECT JANIA Last Admin: 04/11/20 12:30 Dose: 75 mls/hr Documented by: Metoclopramide HCl (Metoclopramide 10 Mg/2 Ml Inj) 10 mg IV Q6H PRN PRN Reason: Nausea And Vomiting Midazolam HCl (Midazolam 5 Mg/5 Ml Inj Mdv) 5 mg IV ONCE NR Stop: 04/11/20 18:00 Last Admin: 04/11/20 11:20 Dose: 3.5 mg Documented by: Ondansetron HCl (Ondansetron 4 Mg/2 Ml Inj) 4 mg IV Q8H PRN PRN Reason: Nausea And Vomiting Last Admin: 04/10/20 04:49 Dose: 4 mg Documented by: Oxycodone/Acetaminophen (Oxycodone /Acetaminophen 5-325mg Tab) 1 tab PO Q6H PRN PRN Reason: Pain, Moderate (4-6) Sodium Chloride (Sodium Chloride 0.9% 10 Ml Flush Syringe) 10 ml IV BID [facility] Last Admin: 04/11/20 06:13 Dose: Not Given Documented by: Sodium Chloride (Sodium Chloride 0.9% 10 Ml Flush Syringe) 10 ml IV PRN PRN PRN Reason: LINE FLUSH Physical Examination - Physical Exam Narrative exam: Physical Exam: Constitutional: Alert, cooperative. No acute distress Head, Ears, Nose: Normocephalic, atraumatic. External ears, nose normal Eyes: Conjunctivae/corneas clear. No icterus. No ptosis. Neck: Supple, no meningeal signs Oral: dentition fair, no thrush Cardiovascular: S1, S2 normal. Respiratory: Good air entry, clear to auscultation bilaterally GI: +SAVANNAH drain Musculoskeletal: No pedal edema, no cyanosis. Skin: No rash or abscess Hem/Lymphatic: No palpable cervical or supraclavicular nodes. No lymphangitis Psych: Mood ok. Affect normal Neurological: Awake, alert, oriented. No gross abnormality - Constitutional Vitals: Vital Signs Temp Pulse Resp BP Pulse Ox 98.8 F 101 H 18 127/74 98 04/11/20 12:12 04/11/20 12:12 04/11/20 12:12 04/11/20 12:12 04/11/20 12:12 Temperature -Last 24 Hours Temperature 98.8 F Temperature 98.4 F Temperature 98.5 F Temperature 98.7 F Temperature 98.3 F Results - Labs CBC & Chem 7: 04/11/20 08:07 04/11/20 08:07 Labs: Abnormal lab results 04/11/20 04/11/20 04/11/20 Range/Units 08:07 08:07 08:07 WBC 12.6 H (4.5-11.0) K/mm3 MCV 74 L (84-94) fl MCH 25 L (28-32) pg Lymph % (Auto) 6.4 L (13.4-35.0) % [place] % (Auto) 11.4 H (0.0-7.3) % Lymph # (Auto) 0.8 L (1.2-5.4) K/mm3 [place] # (Auto) 1.4 H (0.0-0.8) K/mm3 Seg Neutrophils % 81.9 H (40.0-70.0) % Seg Neutrophils # 10.3 H (1.8-7.7) K/mm3 INR 1.15 H (0.87-1.13) Sodium 136 L (137-145) mmol/L Potassium 3.3 L (3.6-5.0) mmol/L BUN 6 L (9-20) mg/dL Creatinine 0.6 L (0.8-1.3) mg/dL Glucose 103 H (75-100) mg/dL Assessment and Plan Cultures: Blood culture pending A/P: 24-year-old man past medical history appendicitis with abscess presented to the hospital complaining of abdominal pain. Found to have large pelvic abscess. #Acute sepsis: Present with tachycardia and leukocytosis. Secondary to pelvic abscess. #Pelvic abscess: Had drain placed today by IR. #Appendiceal rupture: For outpatient surgery Recs: -De-escalate to ceftriaxone and Flagyl. -Follow-up blood and abscess cultures. Thank you for the consult, we will continue to follow. Mariaa Euceda MD [facility] O: [phone] F: [phone]
--- NOTE | 2020-04-11 14:27 | Progress Note ---
Assessment and Plan - Patient Problems (1) Appendicitis with abscess Current Visit: Yes Status: Acute Plan to address problem: 1) Await C&S results. 2) Elective outpt appendectomy if condition continues to improve. Subjective Date of service: 04/11/20 Patient Reports: Positive: no new complaints, feels better (Had IR drainage today. Dr. Bonilla's notes read.) Objective Vital Signs - 12hr 04/11/20 04/11/20 04/11/20 04:01 07:51 08:11 Temperature 98.5 F 98.4 F Pulse Rate 98 H 97 H Pulse Rate [Pre -Procedure] Respiratory 16 18 Rate Respiratory Rate [Pre- Procedure] Blood Pressure 109/67 103/68 Blood Pressure [Pre-Procedure] O2 Sat by Pulse 99 99 98 Oximetry O2 Sat by Pulse Oximetry [Pre- Procedure] 04/11/20 04/11/20 11:00 12:12 Temperature 98.8 F Pulse Rate 101 H Pulse Rate [Pre 94 H -Procedure] Respiratory 18 Rate Respiratory 18 Rate [Pre- Procedure] Blood Pressure 127/74 Blood Pressure 123/67 [Pre-Procedure] O2 Sat by Pulse 98 Oximetry O2 Sat by Pulse 100 Oximetry [Pre- Procedure] - Abdomen soft, bowel sounds normal (Non-tender.) - Labs 04/11/20 08:07 04/11/20 08:07 Diabetes panel 04/11/20 Range/Units 08:07 Sodium 136 L (137-145) mmol/L Potassium 3.3 L (3.6-5.0) mmol/L Chloride 101.2 (98-107) mmol/L Carbon Dioxide 23 (22-30) mmol/L BUN 6 L (9-20) mg/dL Creatinine 0.6 L (0.8-1.3) mg/dL Glucose 103 H (75-100) mg/dL Calcium 8.4 (8.4-10.2) mg/dL Calcium panel 04/11/20 Range/Units 08:07 Calcium 8.4 (8.4-10.2) mg/dL Pituitary panel 04/11/20 Range/Units 08:07 Sodium 136 L (137-145) mmol/L Potassium 3.3 L (3.6-5.0) mmol/L Chloride 101.2 (98-107) mmol/L Carbon Dioxide 23 (22-30) mmol/L BUN 6 L (9-20) mg/dL Creatinine 0.6 L (0.8-1.3) mg/dL Glucose 103 H (75-100) mg/dL Calcium 8.4 (8.4-10.2) mg/dL Adrenal panel 04/11/20 Range/Units 08:07 Sodium 136 L (137-145) mmol/L Potassium 3.3 L (3.6-5.0) mmol/L Chloride 101.2 (98-107) mmol/L Carbon Dioxide 23 (22-30) mmol/L BUN 6 L (9-20) mg/dL Creatinine 0.6 L (0.8-1.3) mg/dL Glucose 103 H (75-100) mg/dL Calcium 8.4 (8.4-10.2) mg/dL
[2020-04-11] MEDS: metroNIDAZOLE/NS 500 MG/100 ML 500 MG/100 ML BAG IV SCH ×2 (15:04→22:05)
[2020-04-11] MEDS: cefTRIAXone/NS 2 GM/100 ML 2 GM/100 ML BAG IV SCH (15:06)
--- NOTE | 2020-04-11 16:42 | Progress Note ---
Assessment and Plan -- Sepsis Due to intra-abdominal abscess Continue sepsis protocol with IV antibiotics, Monitor CBC BMP, follow culture -- Intra-abdominal abscess Patient had history of appendicular abscess last year on August -status post drainage that time. Patient was recommended to follow-up with Dr. Fraser which he did and patient never had elective appendectomy done as patient appeared to be clinically stable during his outpatient follow-up Patient now came back with big intra-abdominal abscess which is Noted in the CT scan abdomen pelvis, interventional radiology team consulted, surgical team consulted, Continue IV antibiotic therapy, status post IR guided drainage catheter placement --History of appendicular abscess, status post drainage by IR back on 08/2019, and Patient did not have elective appendectomy as outpatient following discharge General surgery now consulted and recommended to follow-up outpatient for elective appendectomy once intra-abdominal abscess resolved -- Nicotine dependence Smoking cessation counseling, supportive care, behavior change counseling, +15 minutes. -- DVT prophylaxis SCD to bilateral lower extremities while in bed, patient is ambulatory. Daily course: 04/10: Cont iv abx, planned for CT guided drainage tomorrow in the am. Patient refusing to take cefepime as he developed nausea and vomiting after infusion of cefepime. Stop cefepime and continue Zosyn for now. 04/11: S/p IR guided drainage of intra-abdominal abscess drainage catheter in place. ID consulted. Per RN patient refusing iv abx. Descalated antibiotic to ceftriaxone and Flagyl per ID recommendation. Will follow surgical culture, continue to monitor clinically for now. Subjective Date of service: 04/11/20 Interval history: Patient seen inside the room with the RN No acute event overnight Refusing IV antibiotics s/p IR guided drainage yesterday Objective - Exam Narrative Exam: Limited physical exam due to COVID-19 pandemic to minimize transmission of the disease and to preserve PPE. Vital reviewed and stable. GENERAL: well-developed well-nourished young male lying on bed appeared to be in no discomfort. HEENT: Normocephalic. Atraumatic. NECK: Supple. CHEST/LUNGS: breathing nonlabored. HEART/CARDIOVASCULAR: Heart rate stable on telemetry ABDOMEN: Visibly not distended. SKIN: There is no rash NEURO: No focal motor deficit. Follows command. MUSCULOSKELETAL: No joint effusion EXTRIMITY: No swelling, no cyanosis or clubbing. PSYCH: cooperative. - Constitutional Vitals: Vital Signs - 12hr 04/11/20 04/11/20 04/11/20 07:51 08:11 11:00 Temperature 98.4 F Pulse Rate 97 H Pulse Rate [ Intra-Procedure ] Pulse Rate [ Post-Procedure] Pulse Rate [Pre 94 H -Procedure] Respiratory 18 Rate Respiratory Rate [Intra- Procedure] Respiratory Rate [Post- Procedure] Respiratory 18 Rate [Pre- Procedure] Blood Pressure 103/68 Blood Pressure [Intra- Procedure] Blood Pressure [Post-Procedure ] Blood Pressure 123/67 [Pre-Procedure] O2 Sat by Pulse 99 98 Oximetry O2 Sat by Pulse Oximetry [ Intra-Procedure ] O2 Sat by Pulse Oximetry [Post -Procedure] O2 Sat by Pulse 100 Oximetry [Pre- Procedure] 04/11/20 04/11/20 04/11/20 11:07 11:12 11:17 Temperature Pulse Rate Pulse Rate [ 87 78 98 H Intra-Procedure ] Pulse Rate [ Post-Procedure] Pulse Rate [Pre -Procedure] Respiratory Rate Respiratory 12 9 L 11 L Rate [Intra- Procedure] Respiratory Rate [Post- Procedure] Respiratory Rate [Pre- Procedure] Blood Pressure Blood Pressure 113/75 116/75 120/76 [Intra- Procedure] Blood Pressure [Post-Procedure ] Blood Pressure [Pre-Procedure] O2 Sat by Pulse Oximetry O2 Sat by Pulse 100 100 100 Oximetry [ Intra-Procedure ] O2 Sat by Pulse Oximetry [Post -Procedure] O2 Sat by Pulse Oximetry [Pre- Procedure] 04/11/20 04/11/20 04/11/20 11:22 11:28 11:40 Temperature Pulse Rate Pulse Rate [ 94 H Intra-Procedure ] Pulse Rate [ 91 H 92 H Post-Procedure] Pulse Rate [Pre -Procedure] Respiratory Rate Respiratory 15 Rate [Intra- Procedure] Respiratory 14 10 L Rate [Post- Procedure] Respiratory Rate [Pre- Procedure] Blood Pressure Blood Pressure 121/69 [Intra- Procedure] Blood Pressure 123/73 127/77 [Post-Procedure ] Blood Pressure [Pre-Procedure] O2 Sat by Pulse Oximetry O2 Sat by Pulse 100 Oximetry [ Intra-Procedure ] O2 Sat by Pulse 100 100 Oximetry [Post -Procedure] O2 Sat by Pulse Oximetry [Pre- Procedure] 04/11/20 04/11/20 04/11/20 11:55 12:10 12:12 Temperature 98.8 F Pulse Rate 101 H Pulse Rate [ Intra-Procedure ] Pulse Rate [ 96 H 96 H Post-Procedure] Pulse Rate [Pre -Procedure] Respiratory 18 Rate Respiratory Rate [Intra- Procedure] Respiratory 25 H 17 Rate [Post- Procedure] Respiratory Rate [Pre- Procedure] Blood Pressure 127/74 Blood Pressure [Intra- Procedure] Blood Pressure 120/74 112/80 [Post-Procedure ] Blood Pressure [Pre-Procedure] O2 Sat by Pulse 98 Oximetry O2 Sat by Pulse Oximetry [ Intra-Procedure ] O2 Sat by Pulse 100 100 Oximetry [Post -Procedure] O2 Sat by Pulse Oximetry [Pre- Procedure] 04/11/20 12:15 Temperature Pulse Rate Pulse Rate [ Intra-Procedure ] Pulse Rate [ Post-Procedure] Pulse Rate [Pre -Procedure] Respiratory 17 Rate Respiratory Rate [Intra- Procedure] Respiratory Rate [Post- Procedure] Respiratory Rate [Pre- Procedure] Blood Pressure Blood Pressure [Intra- Procedure] Blood Pressure [Post-Procedure ] Blood Pressure [Pre-Procedure] O2 Sat by Pulse Oximetry O2 Sat by Pulse Oximetry [ Intra-Procedure ] O2 Sat by Pulse Oximetry [Post -Procedure] O2 Sat by Pulse Oximetry [Pre- Procedure] - Labs CBC & Chem 7: 04/12/20 14:03 04/13/20 09:40 Labs: Abnormal lab results 04/11/20 04/11/20 04/11/20 Range/Units 08:07 08:07 08:07 WBC 12.6 H (4.5-11.0) K/mm3 MCV 74 L (84-94) fl MCH 25 L (28-32) pg Lymph % (Auto) 6.4 L (13.4-35.0) % [place] % (Auto) 11.4 H (0.0-7.3) % Lymph # (Auto) 0.8 L (1.2-5.4) K/mm3 [place] # (Auto) 1.4 H (0.0-0.8) K/mm3 Seg Neutrophils % 81.9 H (40.0-70.0) % Seg Neutrophils # 10.3 H (1.8-7.7) K/mm3 INR 1.15 H (0.87-1.13) Sodium 136 L (137-145) mmol/L Potassium 3.3 L (3.6-5.0) mmol/L BUN 6 L (9-20) mg/dL Creatinine 0.6 L (0.8-1.3) mg/dL Glucose 103 H (75-100) mg/dL
[2020-04-12 04:49] LABS: Blood Urea Nitrogen 5 mg/dL (9-20); Calcium 8.8 mg/dL (8.4-10.2); Hemolysis Index 1
[2020-04-12 05:06] LABS: BUN/Creatinine Ratio 7
[2020-04-12] MEDS: metroNIDAZOLE/NS 500 MG/100 ML 500 MG/100 ML BAG IV SCH ×3 (06:56→21:15)
[2020-04-12] MEDS ORDERED: POTASSIUM CHLORIDE ER 20 MEQ TAB PO NR (10:00)
--- NOTE | 2020-04-12 10:59 | Progress Note ---
Assessment and Plan - Patient Problems (1) Appendicitis with abscess Current Visit: Yes Status: Acute Plan to address problem: 1) Satisfactory course 2) Check CBC 3) Per ID Subjective Date of service: 04/12/20 Patient Reports: Positive: no new complaints Objective Vital Signs - 12hr 04/11/20 04/12/20 04/12/20 23:02 05:00 05:10 Temperature 98.3 F 98 F Pulse Rate 72 80 94 H Respiratory 19 18 Rate Blood Pressure 115/71 Blood Pressure 123/70 [Left] O2 Sat by Pulse 99 95 98 Oximetry 04/12/20 04/12/20 05:11 08:00 Temperature 97.8 F Pulse Rate 87 69 Respiratory 16 Rate Blood Pressure 106/67 Blood Pressure [Left] O2 Sat by Pulse 98 99 Oximetry - Abdomen [id number] 4, PM_46_[id number] 6, PM_46_[id number] 8 Hernia: none - Labs 04/11/20 08:07 04/12/20 04:17 Diabetes panel 04/12/20 Range/Units 04:17 Sodium 136 L (137-145) mmol/L Potassium 3.3 L (3.6-5.0) mmol/L Chloride 100.1 (98-107) mmol/L Carbon Dioxide 24 (22-30) mmol/L BUN 5 L (9-20) mg/dL Creatinine 0.7 L (0.8-1.3) mg/dL Glucose 85 (75-100) mg/dL Calcium 8.8 (8.4-10.2) mg/dL Calcium panel 04/12/20 Range/Units 04:17 Calcium 8.8 (8.4-10.2) mg/dL Pituitary panel 04/12/20 Range/Units 04:17 Sodium 136 L (137-145) mmol/L Potassium 3.3 L (3.6-5.0) mmol/L Chloride 100.1 (98-107) mmol/L Carbon Dioxide 24 (22-30) mmol/L BUN 5 L (9-20) mg/dL Creatinine 0.7 L (0.8-1.3) mg/dL Glucose 85 (75-100) mg/dL Calcium 8.8 (8.4-10.2) mg/dL Adrenal panel 04/12/20 Range/Units 04:17 Sodium 136 L (137-145) mmol/L Potassium 3.3 L (3.6-5.0) mmol/L Chloride 100.1 (98-107) mmol/L Carbon Dioxide 24 (22-30) mmol/L BUN 5 L (9-20) mg/dL Creatinine 0.7 L (0.8-1.3) mg/dL Glucose 85 (75-100) mg/dL Calcium 8.8 (8.4-10.2) mg/dL
--- NOTE | 2020-04-12 11:29 | Progress Note ---
Assessment and Plan Cultures: Blood culture pending Abscess culture: Gram-negative rods A/P: 24-year-old man past medical history appendicitis with abscess presented to the hospital complaining of abdominal pain. Found to have large pelvic abscess. #Acute sepsis: Present with tachycardia and leukocytosis. Secondary to pelvic abscess. #Pelvic abscess: Had drain placed today by IR. #Appendiceal rupture: For outpatient surgery Recs: -Continue empiric ceftriaxone and Flagyl. -Follow-up blood and abscess cultures. Thank you for the consult, we will continue to follow. Mariaa Euceda MD [facility] ([facility]) O: [phone] F: [phone] Subjective Date of service: 04/12/20 Interval history: Afebrile, white count improving now 12.6. Preliminary cultures with gram- negative darlene. Objective - Exam Narrative Exam: Physical Exam: Constitutional: Alert, cooperative. No acute distress Head, Ears, Nose: Normocephalic, atraumatic. External ears, nose normal Eyes: Conjunctivae/corneas clear. No icterus. No ptosis. Neck: Supple, no meningeal signs Oral: dentition fair, no thrush Cardiovascular: S1, S2 normal. Respiratory: Good air entry, clear to auscultation bilaterally GI: +SAVANNAH drain Musculoskeletal: No pedal edema, no cyanosis. Skin: No rash or abscess Hem/Lymphatic: No palpable cervical or supraclavicular nodes. No lymphangitis Psych: Mood ok. Affect normal Neurological: Awake, alert, oriented. No gross abnormality - Constitutional Vitals: Vital Signs Temp Pulse Resp BP Pulse Ox 97.8 F 69 16 106/67 99 04/12/20 08:00 04/12/20 08:00 04/12/20 08:00 04/12/20 08:00 04/12/20 08:00 Temperature -Last 24 Hours Temperature 97.8 F Temperature 98 F Temperature 98.3 F Temperature 98.0 F Temperature 98.2 F Temperature 98.8 F - Labs CBC & Chem 7: 04/11/20 08:07 04/12/20 04:17 Labs: Abnormal lab results 04/12/20 Range/Units 04:17 Sodium 136 L (137-145) mmol/L Potassium 3.3 L (3.6-5.0) mmol/L BUN 5 L (9-20) mg/dL Creatinine 0.7 L (0.8-1.3) mg/dL
--- NOTE | 2020-04-12 12:30 | Discharge Summary ---
Providers - Providers Date of Admission: 04/09/20 18:54 Date of discharge: 04/12/20 Attending physician: ERWIN GARCIA 04/09/20 18:46 Consult to Physician [CONS] Routine Comment: Consulting Provider: AMEYA MONAE Physician Instructions: Reason For Exam: pelvic abscess 04/09/20 19:03 Consult to Physician [CONS] Routine Comment: Consulting Provider: RITESH KENDRICK Physician Instructions: Reason For Exam: pelvic abscess, CT drainage? 04/11/20 12:49 Consult to Physician [CONS] Routine Comment: Consulting Provider: ROBERT ARRIAZA Physician Instructions: Reason For Exam: Intra-abdominal abscess Primary care physician: RN [facility] Hospitalization Condition: Serious Disposition: DC-01 TO HOME OR SELFCARE Time spent for discharge: 34 minutes Core Measure Documentation - Palliative Care Palliative Care/ Comfort Measures: Not Applicable - Core Measures Any of the following diagnoses?: none Exam - Constitutional Vitals: Temp Pulse Resp BP Pulse Ox 97.8 F 69 16 106/67 99 04/12/20 08:00 04/12/20 08:00 04/12/20 08:00 04/12/20 08:00 04/12/20 08:00 Plan Activity: advance as tolerated Weight Bearing Status: Non-Weight Bearing Diet: advance as tolerated Wound: per your surgeon's advice Additional Instructions: Please follow your abdominal cx result in 2 days Plan of Treatment: Please continue antibiotic at least for 2 weeks. You may need longer duration of antibiotic which will be determined on your outpatient follow-up. Please make sure to follow-up with your culture results Please follow-up with Dr. Chad Horner to remove your intra-abdominal drainage catheter You may need repeat scan to make sure your abscess has been resolved You also need to follow-up with infection disease specialist before you disc ontinue your antibiotics You need to have f/u with Dr Monae in 4-6 weeks for possible elective appendectomy Follow up with: RITESH KENDRICK MD [Staff Physician] - 7 Days ROBERT ARRIAAZ MD [Staff Physician] - 7 Days PRIMARY MD RIVKA [Primary Care Provider] - 3-5 Days AMEYA MONAE MD [Staff Physician] - 7 Days Prescriptions: metroNIDAZOLE [Flagyl] 500 mg PO Q8HR #42 tablet Potassium Chloride [K-Dur] 40 meq PO ONCE@1000 #4 tablet levoFLOXacin [Levaquin] 750 mg PO QDAY #14 tablet oxyCODONE /ACETAMINOPHEN [Percocet 5/325 mg] 1 tab PO Q6H PRN #10 tablet PRN Reason: Pain, Moderate (4-6)
[2020-04-12 14:22] LABS: Basophils # (Auto) 0.1 K/mm3 (0.0-0.1); Basophils % (Auto) 0.5 % (0.0-1.8); Eosinophils # (Auto) 0.1 K/mm3 (0.0-0.4); Eosinophils % (Auto) 0.9 % (0.0-4.3); Hematocrit 37.7 % (35.5-45.6); Hemoglobin 12.6 gm/dl (11.8-15.2); Lymphocytes # (Auto) 1.7 K/mm3 (1.2-5.4); Lymphocytes % (Auto) 16.1 % (13.4-35.0); Mean Corpuscular HGB Conc 34 % (32-34); Mean Corpuscular Volume 75 fl (84-94); Monocytes % (Auto) 9.6 % (0.0-7.3); Platelet Count 440 K/mm3 (140-440); Red Blood Count 5.03 M/mm3 (3.65-5.03)
[2020-04-12] MEDS: cefTRIAXone/NS 2 GM/100 ML 2 GM/100 ML BAG IV SCH (14:42)
--- NOTE | 2020-04-12 16:15 | Event Note ---
Date: 04/12/20 Contacted about [facility] and possible discharge. Recommend patient gets a CT of the abdomen and pelvis with contrast to ensure abscess resolution as it is unlikely he will be able to afford one once he is discharged. Recommend patient discharged on antibiotics he can afford in order to avoid further morbidity or mortality. Recommend followup with Dr. Monae in 2 weeks and can followup with me in 2 weeks if needed for drain removal if Dr. Monae perfers.
--- NOTE | 2020-04-12 16:24 | Event Note ---
Date: 04/12/20 Patient seen with RN at the bedside He has been refusing Iv abx and also refusing electrolyte replacement He doesn't want iv abx as he states that he feels nauseated I tried to explain why IV abx is necessary but he refused to listen, instead he got very angry and threatened to leave the hospital I explained him I can get a stat CT abdomen to evaluated his abscess and afterwards I can place him on oral abx per ID recommendation for discharge with outpt f/u. Patient refused to get CT scan also. I discussed with Dr Bonilla and he recommended the patient to f/u with [facility] for his drainage care, when I informed this to the patient he became even more upset. He started to yell and wanted to see Dr Bonilla. I asked RN to page Dr Bonilla.
--- NOTE | 2020-04-12 17:02 | Progress Note ---
Assessment and Plan 24-year-old male with past medical history of ruptured appendiceal abscess status post CT-guided aspiration and CT-guided drainage who presents with recurrent ruptured appendiceal abscess. The abscess was on top of the bladder and was drained with near complete drainage. Over the first 24 hrs, appeared as expected, 10 mL output. Per patient, over the next 24 hrs, draining increased and now appears to be mostly serous with slightly sanginous and purulent components. Recommend following drain over the next 24-48 hrs with clear outputs. Recommend CT scan. If it continues to be serous, then this may suggest a vesico-abscess fistula, which can occur. Hopefully the output will decrease and resolve. Subjective Date of service: 04/12/20 Interval history: Since procedure, patient has not allowed nurse to drain bag. Per patient, over first 24 hours, had 10 mL output. Per patient, over the next 24 hrs, had 30 mL of what appears to be very serous purulent material. Overall doing much better. Complaining of nausea/vomiting with certain IV antibiotic administration. Objective - Constitutional Vitals: Vital Signs - 12hr 04/12/20 04/12/20 04/12/20 05:10 05:11 08:00 Temperature 97.8 F Pulse Rate 94 H 87 69 Respiratory 16 Rate Blood Pressure 106/67 O2 Sat by Pulse 98 98 99 Oximetry 04/12/20 12:10 Temperature 97.8 F Pulse Rate 86 Respiratory 16 Rate Blood Pressure 120/83 O2 Sat by Pulse 100 Oximetry General appearance: Present: no acute distress - EENT Eyes: EOM intact ENT: hearing intact - Respiratory Respiratory effort: normal Extremities: normal temperature, normal color - Gastrointestinal General gastrointestinal: Present: other (tube in the midline suprapubic area.) - Labs CBC & Chem 7: 04/12/20 14:03 04/12/20 04:17 Labs: Abnormal lab results 04/12/20 04/12/20 Range/Units 04:17 14:03 MCV 75 L (84-94) fl MCH 25 L (28-32) pg [place] % (Auto) 9.6 H (0.0-7.3) % [place] # (Auto) 1.0 H (0.0-0.8) K/mm3 Seg Neutrophils % 72.9 H (40.0-70.0) % Seg Neutrophils # 7.8 H (1.8-7.7) K/mm3 Sodium 136 L (137-145) mmol/L Potassium 3.3 L (3.6-5.0) mmol/L BUN 5 L (9-20) mg/dL Creatinine 0.7 L (0.8-1.3) mg/dL Medications & Allergies - Medications Allergies/Adverse Reactions: Allergies No Known Allergies Allergy (Verified 04/09/20 14:56) Home Medications: Home Medications Medication Instructions Recorded Confirmed Last Taken Type Potassium Chloride [K-Dur] 40 meq PO ONCE@1000 #4 tablet 04/12/20 Unknown Rx levoFLOXacin [Levaquin] 750 mg PO QDAY #14 tablet 04/12/20 Unknown Rx metroNIDAZOLE [Flagyl] 500 mg PO Q8HR #42 tablet 04/12/20 Unknown Rx oxyCODONE /ACETAMINOPHEN [Percocet 1 tab PO Q6H PRN #10 tablet 04/12/20 Unknown Rx 5/325 mg] Active Medications: Generic Name Dose Route Start Last Admin Trade Name Freq PRN Reason Stop Dose Admin Acetaminophen 650 mg 04/09/20 18:54 Acetaminophen 325 Mg Tab PO Q4H PRN Pain MILD(1-3)/Fever >100.5/GRANDE Albuterol 2.5 mg 04/09/20 18:54 Albuterol 2.5 Mg/3 Ml Nebu IH Q4HRT PRN Shortness Of Breath Hydromorphone HCl 0.25 mg 04/09/20 18:54 04/09/20 19:20 Hydromorphone 1 Mg/1 Ml Inj IV 0.25 mg Q4H PRN Administration Pain, Moderate (4-6) Potassium Chloride 30 meq/ 1,015 mls @ 75 mls/hr 04/11/20 11:00 04/11/20 22:08 Dextrose/Sodium Chloride IV 75 mls/hr DIRECT JANIA Administration Metronidazole 500 mg in 100 mls @ 100 mls/hr 04/11/20 14:00 04/12/20 06:56 Flagyl 500 Mg/100 Ml IV 100 mls/hr Q8HR JANIA Administration Protocol Levofloxacin/Dextrose 750 mg in 150 mls @ 100 mls/hr 04/12/20 17:00 Levaquin 750mg/150ml IV Q24H JANIA Protocol Metoclopramide HCl 10 mg 04/10/20 17:14 Metoclopramide 10 Mg/2 Ml Inj IV Q6H PRN Nausea And Vomiting Ondansetron HCl 4 mg 04/09/20 18:54 04/10/20 04:49 Ondansetron 4 Mg/2 Ml Inj IV 4 mg Q8H PRN Administration Nausea And Vomiting Oxycodone/Acetaminophen 1 tab 04/09/20 18:54 Oxycodone /Acetaminophen 5-325mg Tab PO Q6H PRN Pain, Moderate (4-6) Sodium Chloride 10 ml 04/09/20 22:00 04/11/20 22:05 Sodium Chloride 0.9% 10 Ml Flush Syringe IV 10 ml BID JANIA Administration Sodium Chloride 10 ml 04/09/20 18:54 Sodium Chloride 0.9% 10 Ml Flush Syringe IV PRN PRN LINE FLUSH
--- NOTE | 2020-04-12 17:04 | Progress Note ---
Assessment and Plan -- Sepsis Due to intra-abdominal abscess Continue sepsis protocol with IV antibiotics, Monitor CBC BMP, follow culture -- Intra-abdominal abscess Patient had history of appendicular abscess last year on August -status post drainage that time. Patient was recommended to follow-up with Dr. Fraser which he did and patient never had elective appendectomy done as patient appeared to be clinically stable during his outpatient follow-up Patient now came back with big intra-abdominal abscess which is Noted in the CT scan abdomen pelvis, interventional radiology team consulted, surgical team consulted, Continue IV antibiotic therapy, status post IR guided drainage catheter placement --History of appendicular abscess, status post drainage by IR back on 08/2019, and Patient did not have elective appendectomy as outpatient following discharge General surgery now consulted and recommended to follow-up outpatient for elective appendectomy once intra-abdominal abscess resolved -- Nicotine dependence Smoking cessation counseling, supportive care, behavior change counseling, +15 minutes. -- DVT prophylaxis SCD to bilateral lower extremities while in bed, patient is ambulatory. Daily course: 04/10: Cont iv abx, planned for CT guided drainage tomorrow in the am. Patient refusing to take cefepime as he developed nausea and vomiting after infusion of cefepime. Stop severe pain and continue Zosyn for now. 04/11: S/p IR guided drainage of intra-abdominal abscess drainage catheter in place. ID consulted. Per RN patient refusing iv abx. Descalated antibiotic to ceftriaxone and Flagyl per ID recommendation. Will follow surgical culture, continue to monitor clinically for now. 04/12: Patient has been refusing IV antibiotics and potassium supplements so far since admission. Patient also refused CT abdomen pelvis. Had extensive discussed with the patient and apparently patient preferred to discuss with Dr. Bonilla about his plan of care. Dr. Bonilla had discussion with the patient and patient now agreeable for the IV antibiotics and CT scan. Changed Rocephin to IV Levaquin hoping that will minimize nausea and vomiting. Continue Flagyl. Ordered blood for CT abdomen pelvis to rule out possible bladder fistula. We will follow the results. Subjective Date of service: 04/12/20 Interval history: Patient seen inside the room with the RN No acute event overnight Refused IV antibiotics and potassium supplements Refusing IV fluids Having serosanguineous fluid drainage from the intra-abdominal catheter Objective - Exam Narrative Exam: Limited physical exam due to COVID-19 pandemic to minimize transmission of the disease and to preserve PPE. Vital reviewed and stable. GENERAL: well-developed well-nourished young male lying on bed appeared to be in no discomfort. HEENT: Normocephalic. Atraumatic. NECK: Supple. CHEST/LUNGS: breathing nonlabored. HEART/CARDIOVASCULAR: Heart rate stable on telemetry ABDOMEN: Visibly not distended. Drainage catheter in place with serosanguineous fluid SKIN: There is no rash NEURO: No focal motor deficit. Follows command. MUSCULOSKELETAL: No joint effusion EXTRIMITY: No swelling, no cyanosis or clubbing. PSYCH: Appeared very agitated and upset. - Constitutional Vitals: Vital Signs - 12hr 04/12/20 04/12/20 04/12/20 05:10 05:11 08:00 Temperature 97.8 F Pulse Rate 94 H 87 69 Respiratory 16 Rate Blood Pressure 106/67 O2 Sat by Pulse 98 98 99 Oximetry 04/12/20 12:10 Temperature 97.8 F Pulse Rate 86 Respiratory 16 Rate Blood Pressure 120/83 O2 Sat by Pulse 100 Oximetry - Labs CBC & Chem 7: 04/12/20 14:03 04/12/20 04:17 Labs: Abnormal lab results 04/12/20 04/12/20 Range/Units 04:17 14:03 MCV 75 L (84-94) fl MCH 25 L (28-32) pg [place] % (Auto) 9.6 H (0.0-7.3) % [place] # (Auto) 1.0 H (0.0-0.8) K/mm3 Seg Neutrophils % 72.9 H (40.0-70.0) % Seg Neutrophils # 7.8 H (1.8-7.7) K/mm3 Sodium 136 L (137-145) mmol/L Potassium 3.3 L (3.6-5.0) mmol/L BUN 5 L (9-20) mg/dL Creatinine 0.7 L (0.8-1.3) mg/dL
[2020-04-13] MEDS: POTASSIUM CHLORIDE 30 MEQ in D5W/0.9% NACL 1,000 ML IV SCH (00:11)
[2020-04-13] MEDS: metroNIDAZOLE/NS 500 MG/100 ML 500 MG/100 ML BAG IV SCH ×3 (05:26→23:06)
[2020-04-13 10:44] LABS: Blood Urea Nitrogen 5 mg/dL (9-20); Calcium 8.7 mg/dL (8.4-10.2); Hemolysis Index 10
[2020-04-13 10:56] LABS: BUN/Creatinine Ratio 8
--- NOTE | 2020-04-13 11:01 | Cat Scan Report ---
CT abdomen pelvis w con INDICATION: MAIN. TECHNIQUE: All CT scans at this location are performed using CT dose reduction for ALARA by means of automated e xposure control. COMPARISON: 04/09/2020 FINDINGS: Lung bases are clear of acute disease. Liver, gallbladder, spleen, pancreas, kidneys and adrenals are negative. Abdominal aorta is normal in size. No adenopathy. Pelvis Drainage catheter has been placed, and the abscess superior to the urinary bladder appears to be comp letely resolved. There is mild residual soft tissue thickening in this area and possibly a somewhat l inear fluid collection posterior and to the left of the drained abscess. This small fluid collection has not changed significantly and may be separate from the drained abscess. No free fluid or free air . Focal ileus involving adjacent small bowel has not changed significantly. Mild reactive mesenteric ad enopathy has improved. IMPRESSION: 1. The major component of the anterior pelvic abscess appears to be resolved. However, there is some question of a separate, apparently unconnected fluid collection just posterior and to the left of the drained abscess. Although small, this component may be accessible to percutaneous drainage as well. Signer Name: Manuel Haider MD Signed: 04/13/2020 10:56 AM Workstation Name: [id number]
--- NOTE | 2020-04-13 11:18 | Progress Note ---
Assessment and Plan Assessment and plan: -- Sepsis Due to intra-abdominal abscess Continue sepsis protocol with IV antibiotics, Monitor CBC BMP, follow culture -- Intra-abdominal abscess Patient had history of appendicular abscess last year on August -status post drainage that time. Patient was recommended to follow-up with Dr. Fraser which he did and patient never had elective appendectomy done as patient appeared to be clinically stable during his outpatient follow-up Patient now came back with big intra-abdominal abscess which is Noted in the CT scan abdomen pelvis, interventional radiology team consulted, surgical team consulted, Continue IV antibiotic therapy, status post IR guided drainage catheter placement --History of appendicular abscess, status post drainage by IR back on 08/2019, and Patient did not have elective appendectomy as outpatient following discharge General surgery now consulted and recommended to follow-up outpatient for elective appendectomy once intra-abdominal abscess resolved -- Nicotine dependence Smoking cessation counseling, supportive care, behavior change counseling, +15 minutes. -- DVT prophylaxis SCD to bilateral lower extremities while in bed, patient is ambulatory. Daily course: 04/10: Cont iv abx, planned for CT guided drainage tomorrow in the am. Patient refusing to take cefepime as he developed nausea and vomiting after infusion of cefepime. Stop severe pain and continue Zosyn for now. 04/11: S/p IR guided drainage of intra-abdominal abscess drainage catheter in place. ID consulted. Per RN patient refusing iv abx. Descalated antibiotic to ceftriaxone and Flagyl per ID recommendation. Will follow surgical culture, continue to monitor clinically for now. 04/12: Patient has been refusing IV antibiotics and potassium supplements so far since admission. Patient also refused CT abdomen pelvis. Had extensive discussed with the patient and apparently patient preferred to discuss with Dr. Bonilla about his plan of care. Dr. Bonilla had discussion with the patient and patient now agreeable for the IV antibiotics and CT scan. Changed Rocephin to I V Levaquin hoping that will minimize nausea and vomiting. Continue Flagyl. Ordered blood for CT abdomen pelvis to rule out possible bladder fistula. We will follow the results. 04/13/2020; patient is on IV Levaquin and Flagyl. He had repeat CT this morning, no fistula showed. The abscess on the anterior side was completely drained. There is new uncollected abscess on the left posterior area of previous abscess. Discussed with Dr. Bonilla and he said patient need to be here for the next 24 to 48 hours and follow the drainage. If the drainage is below 10 mL he can be discharged. Dr. Paez is going to follow him tomorrow. The management plan was explained to the patient and he was in agreement with the plan of care. History Interval history: Patient was seen and evaluated this morning Patient was calm and cooperative Patient is asking to go home, but after explained his CT finding and consultants recommendations decided to stay Hospitalist Physical - Physical exam Narrative exam: Not in cardiopulmonary distress. The patient appeared well nourished and normally developed. Vital signs as documented. Head exam is unremarkable. No scleral icterus . Neck is without jugular venous distension, thyromegaly, or carotid bruits. Lungs are clear to auscultation. Cardiac exam reveals regular rate and Rhythm. Abdominal exam drainage tube in the right lower quadrant, draining about 10 mL of bloody fluid. Extremities are nonedematous and both femoral and pedal pulses are normal. 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 No focal weakness. - Constitutional Vitals: Temp Pulse Resp BP Pulse Ox 97.9 F 85 18 105/62 98 04/13/20 07:13 04/13/20 07:13 04/13/20 07:13 04/13/20 07:13 04/13/20 07:13 General appearance: Present: no acute distress Results - Labs CBC & Chem 7: 04/12/20 14:03 04/13/20 09:40 Labs: Laboratory Last Values WBC 10.7 K/mm3 (4.5-11.0) 04/12/20 14:03 RBC 5.03 M/mm3 (3.65-5.03) 04/12/20 14:03 Hgb 12.6 gm/dl (11.8-15.2) 04/12/20 14:03 Hct 37.7 % (35.5-45.6) 04/12/20 14:03 MCV 75 fl (84-94) L 04/12/20 14:03 MCH 25 pg (28-32) L 04/12/20 14:03 MCHC 34 % (32-34) 04/12/20 14:03 RDW 14.0 % (13.2-15.2) 04/12/20 14:03 Plt Count 440 K/mm3 (140-440) 04/12/20 14:03 Lymph % (Auto) 16.1 % (13.4-35.0) 04/12/20 14:03 Crisp % (Auto) 9.6 % (0.0-7.3) H 04/12/20 14:03 Eos % (Auto) 0.9 % (0.0-4.3) 04/12/20 14:03 Baso % (Auto) 0.5 % (0.0-1.8) 04/12/20 14:03 Lymph # (Auto) 1.7 K/mm3 (1.2-5.4) 04/12/20 14:03 Crisp # (Auto) 1.0 K/mm3 (0.0-0.8) H 04/12/20 14:03 Eos # (Auto) 0.1 K/mm3 (0.0-0.4) 04/12/20 14:03 Baso # (Auto) 0.1 K/mm3 (0.0-0.1) 04/12/20 14:03 Seg Neutrophils % 72.9 % (40.0-70.0) H 04/12/20 14:03 Seg Neutrophils # 7.8 K/mm3 (1.8-7.7) H 04/12/20 14:03 PT 14.5 Sec. (12.2-14.9) 04/11/20 08:07 INR 1.15 (0.87-1.13) H 04/11/20 08:07 Sodium 137 mmol/L (137-145) 04/13/20 09:40 Potassium 3.7 mmol/L (3.6-5.0) 04/13/20 09:40 Chloride 103.6 mmol/L (98-107) 04/13/20 09:40 Carbon Dioxide 24 mmol/L (22-30) 04/13/20 09:40 Anion Gap 13 mmol/L 04/13/20 09:40 BUN 5 mg/dL (9-20) L 04/13/20 09:40 Creatinine 0.6 mg/dL (0.8-1.3) L 04/13/20 09:40 Estimated GFR > 60 ml/min 04/13/20 09:40 BUN/Creatinine Ratio 8 % 04/13/20 09:40 Glucose 93 mg/dL (75-100) 04/13/20 09:40 Lactic Acid 1.00 mmol/L (0.7-2.0) 04/10/20 00:45 Calcium 8.7 mg/dL (8.4-10.2) 04/13/20 09:40 Total Bilirubin 0.70 mg/dL (0.1-1.2) 04/09/20 15:19 AST 11 units/L (5-40) 04/09/20 15:19 ALT 17 units/L (7-56) 04/09/20 15:19 Alkaline Phosphatase 102 units/L (35-129) 04/09/20 15:19 Total Protein 9.1 g/dL (6.3-8.2) H 04/09/20 15:19 Albumin 4.2 g/dL (3.9-5) 04/09/20 15:19 Albumin/Globulin Ratio 0.9 % 04/09/20 15:19 Lipase 19 units/L (13-60) 04/09/20 15:19 Microbiology: Microbiology 04/09/20 18:56 Peripheral/Venous Blood Culture - Preliminary NO GROWTH AFTER 72 HOURS 04/09/20 18:45 Peripheral/Venous Blood Culture - Preliminary NO GROWTH AFTER 72 HOURS 04/11/20 Unknown Appendix Surgical Culture - Preliminary Gram Negative James Santos/IV: Voiding Method Toilet Active Medications - Current Medications Current Medications: Generic Name Dose Route Start Last Admin Trade Name Freq PRN Reason Stop Dose Admin Acetaminophen 650 mg 04/09/20 18:54 Acetaminophen 325 Mg Tab PO Q4H PRN Pain MILD(1-3)/Fever >100.5/GRANDE Albuterol 2.5 mg 04/09/20 18:54 Albuterol 2.5 Mg/3 Ml Nebu IH Q4HRT PRN Shortness Of Breath Hydromorphone HCl 0.25 mg 04/09/20 18:54 04/09/20 19:20 Hydromorphone 1 Mg/1 Ml Inj IV 0.25 mg Q4H PRN Administration Pain, Moderate (4-6) Potassium Chloride 30 meq/ 1,015 mls @ 75 mls/hr 04/11/20 11:00 04/13/20 00:11 Dextrose/Sodium Chloride IV 75 mls/hr DIRECT JANIA Administration Metronidazole 500 mg in 100 mls @ 100 mls/hr 04/11/20 14:00 04/13/20 05:26 Flagyl 500 Mg/100 Ml IV 100 mls/hr Q8HR JANIA Administration Protocol Levofloxacin/Dextrose 750 mg in 150 mls @ 100 mls/hr 04/12/20 17:00 04/13/20 00:10 Levaquin 750mg/150ml IV Infused Q24H JANIA Infusion Protocol Metoclopramide HCl 10 mg 04/10/20 17:14 Metoclopramide 10 Mg/2 Ml Inj IV Q6H PRN Nausea And Vomiting Ondansetron HCl 4 mg 04/09/20 18:54 04/10/20 04:49 Ondansetron 4 Mg/2 Ml Inj IV 4 mg Q8H PRN Administration Nausea And Vomiting Oxycodone/Acetaminophen 1 tab 04/09/20 18:54 Oxycodone /Acetaminophen 5-325mg Tab PO Q6H PRN Pain, Moderate (4-6) Sodium Chloride 10 ml 04/09/20 22:00 04/12/20 21:16 Sodium Chloride 0.9% 10 Ml Flush Syringe IV 10 ml BID JANIA Administration Sodium Chloride 10 ml 04/09/20 18:54 Sodium Chloride 0.9% 10 Ml Flush Syringe IV PRN PRN LINE FLUSH
--- NOTE | 2020-04-13 12:27 | Progress Note ---
Assessment and Plan - Patient Problems (1) Appendicitis with abscess Current Visit: Yes Status: Acute Plan to address problem: 1) Per Dr. Bonilla and ID 2) F/u with me in 2 weeks Subjective Date of service: 04/13/20 Patient Reports: Positive: no new complaints Objective Vital Signs - 12hr 04/13/20 04/13/20 05:08 07:13 Temperature 98.2 F 97.9 F Pulse Rate 88 85 Respiratory 18 18 Rate Blood Pressure 107/69 105/62 O2 Sat by Pulse 98 98 Oximetry - Abdomen PM_46_EXABD1 4, PM_46_EXABD1 6, PM_46_EXABD1 8 Hernia: none - Labs 04/12/20 14:03 04/13/20 09:40 Diabetes panel 04/13/20 Range/Units 09:40 Sodium 137 (137-145) mmol/L Potassium 3.7 (3.6-5.0) mmol/L Chloride 103.6 (98-107) mmol/L Carbon Dioxide 24 (22-30) mmol/L BUN 5 L (9-20) mg/dL Creatinine 0.6 L (0.8-1.3) mg/dL Glucose 93 (75-100) mg/dL Calcium 8.7 (8.4-10.2) mg/dL Calcium panel 04/13/20 Range/Units 09:40 Calcium 8.7 (8.4-10.2) mg/dL Pituitary panel 04/13/20 Range/Units 09:40 Sodium 137 (137-145) mmol/L Potassium 3.7 (3.6-5.0) mmol/L Chloride 103.6 (98-107) mmol/L Carbon Dioxide 24 (22-30) mmol/L BUN 5 L (9-20) mg/dL Creatinine 0.6 L (0.8-1.3) mg/dL Glucose 93 (75-100) mg/dL Calcium 8.7 (8.4-10.2) mg/dL Adrenal panel 04/13/20 Range/Units 09:40 Sodium 137 (137-145) mmol/L Potassium 3.7 (3.6-5.0) mmol/L Chloride 103.6 (98-107) mmol/L Carbon Dioxide 24 (22-30) mmol/L BUN 5 L (9-20) mg/dL Creatinine 0.6 L (0.8-1.3) mg/dL Glucose 93 (75-100) mg/dL Calcium 8.7 (8.4-10.2) mg/dL - Imaging Additional Studies: Today's CT abd/pelvis was reviewed.
[2020-04-13] MEDS ORDERED: D5W/0.45% NACL/KCL 20 MEQ 20 MEQ/1,000 ML BAG IV SCH (15:00)
--- NOTE | 2020-04-13 17:18 | Progress Note ---
Assessment and Plan Cultures: Blood culture pending Abscess culture: E coli A/P: 24-year-old man past medical history appendicitis with abscess presented to the hospital complaining of abdominal pain. Found to have large pelvic abscess. #Acute sepsis: Present with tachycardia and leukocytosis. Secondary to pelvic abscess. #Pelvic abscess: Had drain placed by IR. #Appendiceal rupture: For outpatient surgery Recs: -Continue empiric ceftriaxone and Flagyl. -Follow-up blood and abscess cultures. -Recommend DC with 3 weeks Levaquin 750mg q24h and metronidazole 500mg q8h given persistence from previous admission. Thank you for the consult, we will continue to follow. Mariaa Euceda MD [facility] ([facility]) O: [phone] F: [phone] Subjective Date of service: 04/13/20 Interval history: Afebrile, normalized white count. Objective - Exam Narrative Exam: Physical Exam: Constitutional: Alert, cooperative. No acute distress Head, Ears, Nose: Normocephalic, atraumatic. External ears, nose normal Eyes: Conjunctivae/corneas clear. No icterus. No ptosis. Neck: Supple, no meningeal signs Oral: dentition fair, no thrush Cardiovascular: S1, S2 normal. Respiratory: Good air entry, clear to auscultation bilaterally GI: +SAVANNAH drain Musculoskeletal: No pedal edema, no cyanosis. Skin: No rash or abscess Hem/Lymphatic: No palpable cervical or supraclavicular nodes. No lymphangitis Psych: Mood ok. Affect normal Neurological: Awake, alert, oriented. No gross abnormality - Constitutional Vitals: Vital Signs Temp Pulse Resp BP Pulse Ox 98.2 F 63 20 109/71 100 04/13/20 15:13 04/13/20 15:13 04/13/20 15:13 04/13/20 15:13 04/13/20 15:13 Temperature -Last 24 Hours Temperature 98.2 F Temperature 97.4 F Temperature 97.9 F Temperature 98.2 F Temperature 98.0 F Temperature 97.8 F - Labs CBC & Chem 7: 04/12/20 14:03 04/13/20 09:40 Labs: Abnormal lab results 04/13/20 Range/Units 09:40 BUN 5 L (9-20) mg/dL Creatinine 0.6 L (0.8-1.3) mg/dL
[2020-04-14] MEDS: metroNIDAZOLE/NS 500 MG/100 ML 500 MG/100 ML BAG IV SCH (06:52)
[2020-04-14] MEDS: ONDANSETRON 4 MG/2 ML INJ IV PRN (06:58)
[2020-04-14 08:05] VITALS: BP 103/64
--- NOTE | 2020-04-14 09:32 | Progress Note ---
Assessment and Plan Patient's dressing was changed. Patient was also given supplies so that he can change his dressing at home. He will need to follow-up in 2 weeks with for evaluation and potential drainage catheter removal. Patient will need to remain on antibiotics. Patient was counseled that he is to take sponge baths instead of showers to prevent infection. Subjective Date of service: 04/14/20 Principal diagnosis: Appendiceal abscess Interval history: Patient with a history of noncompliance who developed recurrent appendiceal abscess anterior to the bladder. This was subsequently drained with placement of an 8 Syriac drainage catheter. The patient does not allow nursing to evaluate the degree of drainage however yesterday, there was a component of serous drainage concerning for possible fistulous connection. The patient's complaint is predominantly with regards to where the catheter comes out which irritates his skin as the dressing shifted when the patient took a shower. Objective - Constitutional Vitals: Vital Signs - 12hr 04/13/20 04/14/20 04/14/20 23:16 05:21 07:19 Temperature 98.1 F 97.9 F 97.5 F L Pulse Rate 63 82 61 Respiratory 18 18 16 Rate Blood Pressure 105/68 121/89 103/64 O2 Sat by Pulse 99 99 100 Oximetry General appearance: Present: no acute distress - EENT Eyes: EOM intact ENT: hearing intact - Neck Neck: supple, normal ROM - Respiratory Respiratory effort: normal - Gastrointestinal General gastrointestinal: Present: soft, non-tender - Genitourinary Male genitourinary: deferred - Neurologic Neurologic: CNII-XII intact, no focal deficits - Psychiatric Psychiatric: appropriate mood/affect, cooperative - Labs CBC & Chem 7: 04/12/20 14:03 04/13/20 09:40 Labs: Abnormal lab results 04/13/20 Range/Units 09:40 BUN 5 L (9-20) mg/dL Creatinine 0.6 L (0.8-1.3) mg/dL - Imaging and cardiology CT scan - abdomen: image reviewed CT scan - pelvis: image reviewed Medications & Allergies - Medications Allergies/Adverse Reactions: Allergies No Known Allergies Allergy (Verified 04/09/20 14:56) Home Medications: Home Medications Medication Instructions Recorded Confirmed Last Taken Type Potassium Chloride [K-Dur] 40 meq PO ONCE@1000 #4 tablet 04/12/20 Unknown Rx levoFLOXacin [Levaquin] 750 mg PO QDAY #14 tablet 04/12/20 Unknown Rx metroNIDAZOLE [Flagyl] 500 mg PO Q8HR #42 tablet 04/12/20 Unknown Rx oxyCODONE /ACETAMINOPHEN [Percocet 1 tab PO Q6H PRN #10 tablet 04/12/20 Unknown Rx 5/325 mg] Active Medications: Generic Name Dose Route Start Last Admin Trade Name Freq PRN Reason Stop Dose Admin Acetaminophen 650 mg 04/09/20 18:54 Acetaminophen 325 Mg Tab PO Q4H PRN Pain MILD(1-3)/Fever >100.5/GRANDE Albuterol 2.5 mg 04/09/20 18:54 Albuterol 2.5 Mg/3 Ml Nebu IH Q4HRT PRN Shortness Of Breath Hydromorphone HCl 0.25 mg 04/09/20 18:54 04/09/20 19:20 Hydromorphone 1 Mg/1 Ml Inj IV 0.25 mg Q4H PRN Administration Pain, Moderate (4-6) Metronidazole 500 mg in 100 mls @ 100 mls/hr 04/11/20 14:00 04/14/20 06:52 Flagyl 500 Mg/100 Ml IV 100 mls/hr Q8HR JANIA Administration Protocol Levofloxacin/Dextrose 750 mg in 150 mls @ 100 mls/hr 04/12/20 17:00 04/13/20 17:08 Levaquin 750mg/150ml IV 100 mls/hr Q24H JANIA Administration Protocol Potassium Chloride/Dextrose/Sod Cl 20 meq in 1,000 mls @ 75 mls/hr 04/13/20 15:00 04/14/20 06:52 D5w/0.45% Nacl/Kcl 20 Meq IV 75 mls/hr DIRECT JANIA Administration Metoclopramide HCl 10 mg 04/10/20 17:14 Metoclopramide 10 Mg/2 Ml Inj IV Q6H PRN Nausea And Vomiting Ondansetron HCl 4 mg 04/09/20 18:54 04/14/20 06:58 Ondansetron 4 Mg/2 Ml Inj IV 4 mg Q8H PRN Administration Nausea And Vomiting Oxycodone/Acetaminophen 1 tab 04/09/20 18:54 Oxycodone /Acetaminophen 5-325mg Tab PO Q6H PRN Pain, Moderate (4-6) Sodium Chloride 10 ml 04/09/20 22:00 04/13/20 23:15 Sodium Chloride 0.9% 10 Ml Flush Syringe IV 10 ml BID JANIA Administration Sodium Chloride 10 ml 04/09/20 18:54 Sodium Chloride 0.9% 10 Ml Flush Syringe IV PRN PRN LINE FLUSH
--- NOTE | 2020-04-14 09:43 | Discharge Summary ---
Providers - Providers Date of Admission: 04/09/20 18:54 Date of discharge: 04/14/20 Attending physician: KIZZY TORRES MD 04/09/20 18:46 Consult to Physician [CONS] Routine Comment: Consulting Provider: AMEYA MONAE Physician Instructions: Reason For Exam: pelvic abscess 04/09/20 19:03 Consult to Physician [CONS] Routine Comment: Consulting Provider: RITESH KENDRICK Physician Instructions: Reason For Exam: pelvic abscess, CT drainage? 04/11/20 12:49 Consult to Physician [CONS] Routine Comment: Consulting Provider: ROBERT ARRIAZA Physician Instructions: Reason For Exam: Intra-abdominal abscess 04/12/20 16:25 Consult to Case Management [CONS] Routine Services Needed at Discharge: Other Additional Physician Instructions: Medication assistance Primary care physician: CHIEF RADIATION THERAPIST Hospitalization Reason for admission: Appendicitis with abscess Condition: Serious Hospital course: 24 YO Male with Nicotine Dependence presents to ED for evaluation. Patient reports "my stomach hurts". Patient states that he has experienced abdominal pain, nausea, multiple episodes of vomiting over the past 4 days with progressively worsening symptoms over the past 1 day. Patient states that pain is 4/10, intermittent, crampy in nature, worsens with palpation. EMS was notified and upon evaluation the patient was found to be in distress and subsequently transported to [facility] for further care and evaluation of the aforementioned symptoms. The patient was seen and evaluated in the emergency department. All lab and imaging studies reviewed. The patient underwent a CT scan of the abdomen and pelvis which revealed a 7.5 cm x 6 cm pelvic abscess complicated by sepsis. Patient initiated on sepsis protocol and admitted to surgical floor. Surgical team consulted in ED. Interventional radiology team consulted in ED. Patient denies fever, chills, chest pain, palpitations, prod uctive cough, skin rash, recent ill contacts, or known exposure to COVID-19. Prior admission on 08/23/2019 reviewed. All medication listed at time of admission has been reconciled. Hospital course -- Sepsis Due to intra-abdominal abscess Continue sepsis protocol with IV antibiotics, Monitor CBC BMP, follow culture -- Intra-abdominal abscess Patient had history of appendicular abscess last year on August -status post drainage that time. Patient was recommended to follow-up with Dr. Fraser which he did and patient never had elective appendectomy done as patient appeared to be clinically stable during his outpatient follow-up Patient now came back with big intra-abdominal abscess which is Noted in the CT scan abdomen pelvis, interventional radiology team consulted, surgical team consulted, Continue IV antibiotic therapy, status post IR guided drainage catheter placement --History of appendicular abscess, status post drainage by IR back on 08/2019, and Patient did not have elective appendectomy as outpatient following discharge General surgery now consulted and recommended to follow-up outpatient for elective appendectomy once intra-abdominal abscess resolved -- Nicotine dependence Smoking cessation counseling, supportive care, behavior change counseling, +15 minutes. -- DVT prophylaxis SCD to bilateral lower extremities while in bed, patient is ambulatory. Daily course: 04/10: Cont iv abx, planned for CT guided drainage tomorrow in the am. Patient refusing to take cefepime as he developed nausea and vomiting after infusion of cefepime. Stop severe pain and continue Zosyn for now. 04/11: S/p IR guided drainage of intra-abdominal abscess drainage catheter in place. ID consulted. Per RN patient refusing iv abx. Descalated antibiotic to ceftriaxone and Flagyl per ID recommendation. Will follow surgical culture, continue to monitor clinically for now. 04/12: Patient has been refusing IV antibiotics and potassium supplements so far since admission. Patient also refused CT abdomen pelvis. Had extensive discussed with the patient and apparently patient preferred to discuss with Dr. Kendrick about his plan of care. Dr. Kendrick had discussion with the patient and patient now agreeable for the IV antibiotics and CT scan. Changed Rocephin to IV Levaquin hoping that will minimize nausea and vomiting. Continue Flagyl. Ordered blood for CT abdomen pelvis to rule out possible bladder fistula. We will follow the results. 04/13/2020; patient is on IV Levaquin and Flagyl. He had repeat CT this morning, no fistula showed. The abscess on the anterior side was completely drained. There is new uncollected abscess on the left posterior area of previous abscess. Discussed with Dr. Kendrick and he said patient need to be here for the next 24 to 48 hours and follow the drainage. If the drainage is below 10 mL he can be discharged. Dr. Paez is going to follow him tomorrow. The management plan was explained to the patient and he was in agreement with the plan of care. 04/14/2020 -Patient was seen and evaluated this morning, patient did not have any complaints. Patient was evaluated by interventional radiology, and IR recommend patient can be discharged and have follow-up with Dr. Monae in 10 days. ID saw the patient and recommend to discharge the patient with Flagyl and Levaquin for 3-weeks. I told the patient about the management plan and he was asking for liquid medication and I told him there is no liquid form of Flagyl and Levaquin. I gave him a prescription as recommended by ID. Patient was hemodyna mically stable and discharged home. Draining tube is in place and will be removed by Dr. Monae in 10 days in the office. Disposition: - TO HOME OR SELFCARE Time spent for discharge: 35 minutes - Discharge Diagnoses (1) Appendicitis with abscess Status: Acute (2) Pelvic abscess in male Status: Acute (3) Nicotine dependence Status: Acute Qualifiers: Nicotine product type: cigarettes Substance use status: in withdrawal Qualified Code(s): F17.213 - Nicotine dependence, cigarettes, with withdrawal (4) Sepsis Status: Acute Core Measure Documentation - Palliative Care Palliative Care/ Comfort Measures: Not Applicable - Core Measures Any of the following diagnoses?: none Exam - Physical Exam Narrative exam: Not in cardiopulmonary distress. The patient appeared well nourished and normally developed. Vital signs as documented. Head exam is unremarkable. No scleral icterus . Neck is without jugular venous distension, thyromegaly, or carotid bruits. Lungs are clear to auscultation. Cardiac exam reveals regular rate and Rhythm. Abdominal exam drainage tube in the right lower quadrant, draining about 10 mL of bloody fluid. Extremities are nonedematous and both femoral and pedal pulses are normal. 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 No focal weakness. - Constitutional Vitals: Temp Pulse Resp BP Pulse Ox 97.5 F L 61 16 103/64 100 04/14/20 07:19 04/14/20 07:19 04/14/20 07:19 04/14/20 07:19 04/14/20 07:19 Plan Activity: no restrictions Weight Bearing Status: Full Weight Bearing Diet: advance as tolerated Plan of Treatment: Please continue antibiotic at least for 2 weeks. You may need longer duration of antibiotic which will be determined on your outpatient follow-up. Please make sure to follow-up with your culture results Please follow-up with Dr. Chad Horner to remove your intra-abdominal drainage catheter You may need repeat scan to make sure your abscess has been resolved You also need to follow-up with infection disease specialist before you discontinue your antibiotics You need to have f/u with Dr Monae in 4-6 weeks for possible elective appendectomy Follow up with: ROBERT ARRIAZA MD [Staff Physician] - 7 Days PRIMARY CARE, [Primary Care Provider] - 3-5 Days AMEYA MONAE MD [Staff Physician] - 10 Days Forms: AMA Form Prescriptions: metroNIDAZOLE [Flagyl TAB] 500 mg PO Q8HR #63 tablet Potassium Chloride [K-Dur] 40 meq PO ONCE@1000 #4 tablet levoFLOXacin [Levaquin] 750 mg PO QDAY #21 tablet oxyCODONE /ACETAMINOPHEN [Percocet 5/325 mg] 1 tab PO Q6H PRN #10 tablet PRN Reason: Pain, Moderate (4-6)
--- NOTE | 2020-04-14 17:37 | Progress Note ---
Assessment and Plan Cultures: Blood culture pending Abscess culture: E coli A/P: 24-year-old man past medical history appendicitis with abscess presented to the hospital complaining of abdominal pain. Found to have large pelvic abscess. #Acute sepsis: Present with tachycardia and leukocytosis. Secondary to pelvic abscess. #Pelvic abscess: Had drain placed by IR. #Appendiceal rupture: For outpatient surgery Recs: -Continue empiric ceftriaxone and Flagyl. -Recommend DC with 3 weeks Levaquin 750mg q24h and metronidazole 500mg q8h given persistence from previous admission. Thank you for the consult, we will continue to follow. Mariaa Euceda MD [facility] ([facility]) O: [phone] F: [phone] Subjective Date of service: 04/14/20 Principal diagnosis: Appendiceal abscess Interval history: Afebrile white count resolved. Imaging personally reviewed: Abdominal CT: Possible component of smaller fluid collection. Objective - Exam Narrative Exam: Physical Exam: Constitutional: Alert, cooperative. No acute distress Head, Ears, Nose: Normocephalic, atraumatic. External ears, nose normal Eyes: Conjunctivae/corneas clear. No icterus. No ptosis. Neck: Supple, no meningeal signs Oral: dentition fair, no thrush Cardiovascular: S1, S2 normal. Respiratory: Good air entry, clear to auscultation bilaterally GI: +SAVANNAH drain Musculoskeletal: No pedal edema, no cyanosis. Skin: No rash or abscess Hem/Lymphatic: No palpable cervical or supraclavicular nodes. No lymphangitis Psych: Mood ok. Affect normal Neurological: Awake, alert, oriented. No gross abnormality - Constitutional Vitals: Vital Signs Temp Pulse Resp BP Pulse Ox 97.5 F L 61 16 103/64 100 04/14/20 07:19 04/14/20 07:19 04/14/20 07:19 04/14/20 07:19 04/14/20 07:19 Temperature -Last 24 Hours Temperature 97.5 F Temperature 97.9 F Temperature 98.1 F Temperature 97.9 F - Labs CBC & Chem 7: 04/12/20 14:03 04/13/20 09:40
== END 2020-04-14 17:51 | disposition home or self-care (01) | DRG 871 ==
LOC: ED 14:55 → 3B-SURG 18:54 → 3B 22:11
PROVIDERS: ADMIT Internal Medicine; ATTEND Internal Medicine
PROC: 0W9F30Z Drainage of Abdominal Wall with Drainage Device, Percutaneous Approach (ICD-10-PCS; principal; 2020-04-11)
DX: A41.9 Sepsis, unspecified organism (principal); K35.33 Acute appendicitis with perforation, localized peritonitis, and gangrene, with abscess; F17.213 Nicotine dependence, cigarettes, with withdrawal; K56.7 Ileus, unspecified; Z71.6 Tobacco abuse counseling; Z90.49 Acquired absence of other specified parts of digestive tract
CPT/HCPCS: 10160; 36415; 74177; 77012; 80048; 80053; 82140; 83690; 85025; 85610; 87040; 87076; 87116; 87186; 96365; 96366; 96368; 96375; 96376; G0378; C1769; J0692; J1170; J1956; J2250; J2405; J2543; J3010; J3480; J7030; J7040; J7042; Q9967